=== PATIENT | female | born 1970 | race Caucasian/White ===

== ENCOUNTER → 2016-11-25 | Outpatient (CLI) | payer OTHER ==
[2016-11-25 09:06] VITALS: BP 132/78; PULSE 68; RESP 20; TEMP 98.1; BMI 37.9
[2016-11-25 10:40] LABS: Partial Thromboplastin Time 23.2 sec (22.0-30.0); Prothrombin Time 10.5 sec (9.0-12.0)
[2016-11-25 10:50] LABS: CH 29.1; HCT 43.6 % (34.0-46.0); HGB 13.9 gm/dL (11.4-16.0); MCH 28.2 pg (25.0-35.0); MCHC 31.8 g/dL (31.0-37.0); MCV 88.7 fL (80.0-100.0); Mean Platelet Volume 7.6; RBC 4.92 m/uL (3.80-5.40); RDW 12.7 % (11.5-15.5)
[2016-11-25 11:16] LABS: ALT 47 U/L (9-52); AST 22 U/L (14-36); Alkaline Phosphatase 70 U/L (38-126); Anion Gap 11 mmol/L; Blood Urea Nitrogen 17 mg/dL (7-17); Calcium 9.4 mg/dL (8.4-10.2); Carbon Dioxide 27 mmol/L (22-30); Chloride 103 mmol/L (98-107); Cholesterol 150 mg/dL (<200); Glucose 91 mg/dL (74-99); HDL Cholesterol 44 mg/dL (40-60); Iron 63 ug/dL (37-170); Non-African American GFR(MDRD) >60 (>60 ml/min/1.73 sqM); Phosphorous 3.9 mg/dL (2.5-4.5); Potassium 4.3 mmol/L (3.5-5.1); Sodium 141 mmol/L (137-145); Total Bilirubin 0.6 mg/dL (0.2-1.3); Total Protein 6.8 g/dL (6.3-8.2); Triglycerides 119 mg/dL (<150)
[2016-11-25 11:27] LABS: % Iron Saturation 20.1 % (20-50); Prealbumin 23 mg/dL (18-36); Total Iron Binding Capacity 313 ug/dL (265-497)
[2016-11-25 12:22] LABS: Vitamin B12 930 pg/mL (239-931)
[2016-11-25 12:32] LABS: Hemoglobin A1C 5.1 % (4.2-6.1)
--- NOTE | 2016-11-25 22:44 | PN ---
DATE OF SERVICE: 11/25/2016 CHIEF COMPLAINT: Followup, sleeve gastrectomy. HISTORY OF PRESENT ILLNESS: Lisha Haro is a 46-year-old female who is status post sleeve gastrectomy on 08/06/2016. At her height of 5 feet 6 inches, her ideal body weight is 154 pounds. Her highest weight was 295 pounds. Today she comes in weighing 234.5 pounds. She has lost 60.5 pounds. Percent excess weight loss is 43%, especially after 3 months. Body mass index has been reduced from 47.7 to 38. Total BMI point reduction is approximately 10. She reports no abdominal pain. No reports of nausea or vomiting. Her protein intake was actually above 100 grams. As a result, she has developed constipation. She exercises every day over an hour and a half. She is taking multivitamins. Separately she reports moderate hair loss. She did have her thyroid checked; her TSH level was moderately suppressed. She has had no adjustments of her thyroid medications, and hence she presents for further evaluation and management. PAST MEDICAL HISTORY: 1. Hypertension. 2. Morbid obesity. 3. Hypothyroidism. 4. Vitamin D deficiency. PAST SURGICAL HISTORY: 1. Adenoidectomy. 2. Tonsillectomy. 3. Uterine ablation. 4. History of problems with anesthesia. 5. Status post sleeve gastrectomy. MEDICATIONS: 1. Cozaar. 2. Alavert. 3. Synthroid. 4. Hydrochlorothiazide. 5. Vitamin D. 6. Prilosec. 7. Multivitamin. ALLERGIES: Denies. SOCIAL HISTORY: Lifelong nontobacco user. FAMILY HISTORY: She has family history of morbid obesity, including CVA, diabetes, hyperlipidemia, hypertension, osteoarthritis as well as bipolar manic depressive disorder. REVIEW OF SYSTEMS: CONSTITUTIONAL: [place] body weight of 154 pounds for her 5-foot 6-inch frame. Highest weight of 295 pounds. Present weight of approximately 235 pounds. Weight loss of almost 61 pounds. Percent excess weight loss 43% in 3 months. Body mass index reduced from 48 to approximately 38. Total BMI point reduction is approximately 10. GASTROINTESTINAL: No reports of gastroesophageal reflux disease. ENDOCRINE: History of hypothyroidism. Recent TSH demonstrates suppressed levels. HEENT: Denies troubles with vision or hearing. No reports of dysphagia. CARDIOVASCULAR: History of hypertension with at least 2 blood pressure medications. She reports some intermittent palpitations. RESPIRATORY: No reports of pneumonia. MUSCULOSKELETAL: History of osteoarthritis of the bilateral feet. NEURO: No reports of stroke or seizure disorders. PSYCH: No reports of active depression or suicidal ideation. HEMATOLOGIC: No reports of easy bruising or bleeding. PHYSICAL EXAM: VITAL SIGNS: 98.1, 68, 20, 132/78, 5 feet 6 inches, 235 pounds. Body mass index of 37.9. GENERAL: Well-developed female in no acute distress. ABDOMEN: No palpable incisional hernias. Soft, nontender. NECK: No palpable lymphadenopathy or nodules. HEENT: No scleral icterus. Extraocular movements grossly intact. Moist buccal mucosa. Neck is supple without lymphadenopathy. CHEST: Nonlabored respirations with equal bilateral excursions. CARDIOVASCULAR: Regular rate and rhythm. MUSCULOSKELETAL: No clubbing or cyanosis. NEURO: Cranial nerves 2-12 intact grossly intact. No focal or lateralizing signs. PSYCH: Appropriate affect. Alert and oriented to person, place and time. LABS: Bariatric metabolic panel was obtained demonstrating hemoglobin normal at 13.9. INR normal at 1.0. TSH was moderately suppressed at 0.052. Rest of her multivitamins are in excellent limits. ASSESSMENT: 1. Morbid obesity due to excess caloric intake. 2. Body mass index reduced from 47.7 down to 37.9. 3. Hypertensive heart disease. 4. Status post sleeve gastrectomy. 5. Hypothyroidism. 6. Vitamin D deficiency. 7. Osteoarthritis of the bilateral feet. 8. Panniculitis. 9. Dietary surveillance and counseling. 10. History of abnormal TSH level. 11. Iatrogenic-induced hyperthyroidism. 12. Hair loss. PLAN: 1. She is doing magnificent with her weight loss of already 61 pounds in 3 months. 2. Her main concern includes her hair loss, which is mostly consistent with her hyperthyroidism. Her laboratory results were reviewed over the last several months consistent with likely adverse reaction from her thyroid medication. 3. I recommend adjustment to Bariatric Advantage to Alive Ultrapotentcy multivitamin. 4. Recommended followup in one month both to address her hyperthyroidism as well as her hair loss. [facility]
[2016-11-30 15:26] LABS: Selenium 153 mcg/L (63-160)
== END | disposition home or self-care (01) ==
LOC: BARWHC3 08:44
PROVIDERS: ATTEND Surgery Plastic and Reconstructive Surgery
DX: Z48.815 Encounter for surgical aftercare following surgery on the digestive system (principal); Z71.3 Dietary counseling and surveillance; Z98.84 Bariatric surgery status; E05.80 Other thyrotoxicosis without thyrotoxic crisis or storm; Z68.37 Body mass index [BMI] 37.0-37.9, adult
CPT/HCPCS: 84255; 84134; 84425; 80061; 80053; 82607; 82728; 83036; 82525; 82746; 83540; 83550; 83735; 84100; 84443; 84590; 84630; 85027; 85610; 85730; 82306; 83970; 97803; G0463; 99211

== ENCOUNTER → 2017-01-06 | Outpatient (CLI) | payer OTHER ==
[2017-01-06 09:09] VITALS: BP 135/79; PULSE 60; RESP 16; TEMP 98.4; BMI 35.3
--- NOTE | 2017-02-06 17:30 | P.PN ---
Progress Note - Text DATE OF SERVICE: 01/06/2017 CHIEF COMPLAINT: Follow-up sleeve gastrectomy. HISTORY OF PRESENT ILLNESS: Lisha Haro is a 46-year-old female who has undergone a sleeve gastrectomy on 08/06/2016. She is approximately 6 months out. At her height of 5 feet 6 inches, her ideal body weight is 154 pounds. Her highest weight was 295 pounds. Today she comes in weighing 219 pounds. She has lost 76 pounds. Percent excess weight loss is 54%. Body mass index is now reduced from 47.7 down to 35.3. Total BMI point reduction is 12.3. Separately, she has developed a completely new exercise regimen where she exercises on a daily basis. She reports recent slow weight loss as to be expected as she is 6 months out. She reports maintaining at least 55 grams of protein intake. Incidentally, she is also off her omeprazole and denies any recurrent gastroesophageal reflux disease. She no longer takes medications for her blood pressure. She still takes medications for her thyroid. PAST MEDICAL HISTORY: 1. Hypertension. 2. Morbid obesity. 3. Hypothyroidism. 4. Vitamin D deficiency. PAST SURGICAL HISTORY: 1. Adenoidectomy. 2. Tonsillectomy. 3. Uterine ablation. 4. History of problems with anesthesia 5. Status post sleeve gastrectomy. MEDICATIONS: 1. Calcium carbonate. 2. Milk of magnesia. 3. Synthroid. 4. Vitamin B12. 5. Vitamin D. 6. Biotin. ALLERGIES: Denies. SOCIAL HISTORY: Lifelong nontobacco user. FAMILY HISTORY: She has family history of morbid obesity, including CVA, diabetes, hyperlipidemia, hypertension, osteoarthritis as well as bipolar manic depressive disorder. REVIEW OF ORGAN SYSTEMS: CONSTITUTIONAL: [place] body weight of 154 pounds. Her highest weight was 295 pounds. Today she comes in weighing 219 pounds. She has lost 76 pounds. Percent excess weight loss is 54%. Body mass index is now reduced from 47.7 down to 35.3. Total BMI point reduction is 12.3. GASTROINTESTINAL: Resolved gastroesophageal reflux disease. CARDIOVASCULAR: History of hypertension, now resolved. She no longer takes at least 2 medications. No reports of palpitations. ENDOCRINE: History of hypothyroidism. Recent TSH demonstrates suppressed levels. HEENT: Denies troubles with vision or hearing. No reports of dysphagia. RESPIRATORY: No reports of pneumonia. MUSCULOSKELETAL: History of osteoarthritis of the bilateral feet. NEURO: No reports of stroke or seizure disorders. PSYCH: No reports of active depression or suicidal ideation. HEMATOLOGIC: No reports of easy bruising or bleeding. PHYSICAL EXAM: VITAL SIGNS: 98.4, 60, 16, 135/79, 5 feet 6 inches, 219 pounds. Body mass index is 35.4. GENERAL: Well-developed female in no acute distress. ABDOMEN: No palpable incisional hernias. Soft, nontender. NECK: No palpable lymphadenopathy or nodules. HEENT: No scleral icterus. Extraocular movements grossly intact. Moist buccal mucosa. Neck is supple without lymphadenopathy. CHEST: Nonlabored respirations with equal bilateral excursions. CARDIOVASCULAR: Regular rate and rhythm. MUSCULOSKELETAL: No clubbing or cyanosis. NEURO: Cranial nerves 2-12 intact grossly intact. No focal or lateralizing signs. PSYCH: Appropriate affect. Alert and oriented to person, place and time. LABS: Bariatric metabolic panel was reviewed. Hemoglobin was normal at 12.9. TSH was suppressed at 0.052. Trace elements were within normal limits. ASSESSMENT: 1. Morbid obesity due to excess calories. 2. Body mass index reduced from 47.7 down to 35.4. 3. Hypertensive heart disease, resolved. 4. Status post sleeve gastrectomy. 5. Hypothyroidism. 6. Suppressed TSH level. 7. Vitamin D deficiency, now improved. 8. Gastroesophageal reflux disease, resolved. 9. Vitamin A deficiency resolved. 10. Constipation. PLAN: 1. As she reports constipation, she will continue milk of magnesia in the interim. 2. I have gone over with her the results of her suppressed TSH levels which ideally her thyroid medication should be adjusted; however, given her weight loss she wants to keep her current dose. 3. She is also concerned by the slowness of her weight loss, which is to be expected as she is now 6 months out and an expected plateau is present. 4. Overall, she is doing extremely well and I have recommended followup in 3 months. 5. As she no longer has reflux disease, she may stay off her omeprazole. 6. Recommend followup for April,.
== END | disposition home or self-care (01) ==
LOC: BARWHC3 08:49
PROVIDERS: ATTEND Surgery Plastic and Reconstructive Surgery
DX: Z48.815 Encounter for surgical aftercare following surgery on the digestive system (principal); Z71.3 Dietary counseling and surveillance; Z98.84 Bariatric surgery status; E66.01 Morbid (severe) obesity due to excess calories; Z68.35 Body mass index [BMI] 35.0-35.9, adult; E03.9 Hypothyroidism, unspecified; E55.9 Vitamin D deficiency, unspecified; K59.00 Constipation, unspecified; Z79.899 Other long term (current) drug therapy
CPT/HCPCS: 97803; G0463; 99211

== ENCOUNTER → 2017-02-03 | Outpatient (CLI) | payer OTHER ==
[2017-02-03 09:18] VITALS: BP 128/93; PULSE 66; RESP 20; TEMP 98.3; BMI 33.6
--- NOTE | 2017-02-03 11:02 | P.PN ---
Progress Note - Text To whom it may concern: Lisha Haro is under my surgical care and may donate blood products or plasma. Sincerely, Gaviota Ratliff MD, FACS, FICS
[2017-02-03 12:01] LABS: CH 29.2; CHCM 33.3; HCT 42.7 % (34.0-46.0); HDW 2.43; HGB 14.4 gm/dL (11.4-16.0); MCH 29.7 pg (25.0-35.0); MCHC 33.7 g/dL (31.0-37.0); MCV 88.1 fL (80.0-100.0); Mean Platelet Volume 7.9; RBC 4.85 m/uL (3.80-5.40); RDW 13.2 % (11.5-15.5); WBC 7.3 k/uL (3.8-10.6)
[2017-02-03 12:12] LABS: ALT 40 U/L (9-52); AST 22 U/L (14-36); Alkaline Phosphatase 66 U/L (38-126); Anion Gap 10 mmol/L; Blood Urea Nitrogen 18 mg/dL (7-17); Calcium 9.7 mg/dL (8.4-10.2); Carbon Dioxide 34 mmol/L (22-30); Chloride 99 mmol/L (98-107); Cholesterol 157 mg/dL (<200); Glucose 87 mg/dL (74-99); HDL Cholesterol 54 mg/dL (40-60); Iron 50 ug/dL (37-170); Magnesium 2.1 mg/dL (1.6-2.3); Non-African American GFR(MDRD) >60 (>60 ml/min/1.73 sqM); Phosphorous 4.8 mg/dL (2.5-4.5); Potassium 4.4 mmol/L (3.5-5.1); Sodium 143 mmol/L (137-145); Total Bilirubin 0.7 mg/dL (0.2-1.3); Total Protein 7.4 g/dL (6.3-8.2); Triglycerides 121 mg/dL (<150)
[2017-02-03 12:18] LABS: INR 1.1 (<1.1); Partial Thromboplastin Time 23.2 sec (22.0-30.0); Prothrombin Time 10.7 sec (9.0-12.0)
[2017-02-03 12:25] LABS: % Iron Saturation 17.7 % (20-50); Prealbumin 26 mg/dL (18-36); Total Iron Binding Capacity 282 ug/dL (265-497)
[2017-02-03 13:22] LABS: Vitamin B12 >1000 pg/mL (239-931)
[2017-02-03 13:24] LABS: Hemoglobin A1C 5.3 % (4.2-6.1)
[2017-02-08 18:36] LABS: Selenium 182 mcg/L (63-160)
--- NOTE | 2017-03-03 21:13 | P.PN ---
Progress Note - Text DATE OF SERVICE: 02/03/17. CHIEF COMPLAINT: Follow-up sleeve gastrectomy. HISTORY OF PRESENT ILLNESS: Lisha Haro is a 47-year-old female status post sleeve gastrectomy on 08/06/2016. She is on her 6 month anniversary. At her height of 5 feet 6 inches, her ideal body weight is 154 pounds. Her highest weight was 295 pounds. Today she comes in weighing 208 pounds. She has lost 87 pounds in 6 months. Percent excess weight loss is 68%. Body mass index is reduced from 47.7 down to 33.7. BMI point reduction is 14 points. She is only 54 pounds overweight. No reports of gastroesophageal reflux disease. She reports moderate panniculitis of the abdomen. PAST MEDICAL HISTORY: 1. Hypertension. 2. Morbid obesity. 3. Hypothyroidism. 4. Vitamin D deficiency. PAST SURGICAL HISTORY: 1. Adenoidectomy. 2. Tonsillectomy. 3. Uterine ablation. 4. History of problems with anesthesia 5. Status post sleeve gastrectomy. MEDICATIONS: 1. Milk of magnesia. 2. Synthroid. 3. Vitamin B12. 4. Vitamin D. 5. Biotin. 6. Vitamin D3. ALLERGIES: Denies. SOCIAL HISTORY: Lifelong nontobacco user. FAMILY HISTORY: She has family history of morbid obesity, including CVA, diabetes, hyperlipidemia, hypertension, osteoarthritis as well as bipolar manic depressive disorder. REVIEW OF SYSTEMS: CONSTITUTIONAL: [place] body weight is 154 pounds for her 5 foot 6 inch frame. Highest weight of 295 pounds. Present weight 208 pounds. Weight loss of 87 pounds. Percent excess weight loss 68%. Body mass index she is a 47.7 to 33.7. BMI point reduction of 14. MUSCULOSKELETAL: History of lower back pain improved. GASTROINTESTINAL: Resolved gastroesophageal reflux disease. CARDIOVASCULAR: History of hypertension, now resolved. She no longer takes at least 2 medications. No reports of palpitations. ENDOCRINE: History of hypothyroidism. Recent TSH demonstrates suppressed levels. HEENT: Denies troubles with vision or hearing. No reports of dysphagia. RESPIRATORY: No reports of pneumonia. NEURO: No reports of stroke or seizure disorders. PSYCH: No reports of active depression or suicidal ideation. HEMATOLOGIC: No reports of easy bruising or bleeding. PHYSICAL EXAM: VITAL SIGNS: 98.3, 66, 21, 120/93; 5 feet 6 inches, 208 pounds. Body mass index 33.7. ABDOMEN: Soft, nontender. No large palpable incisional hernias. Pannus extends over pubis x 6 nutrition. Weight of pannus between 5 to 10 pounds. Mild to moderate panniculitis. GENERAL: Well-developed female in no acute distress. NECK: No palpable lymphadenopathy or nodules. HEENT: No scleral icterus. Extraocular movements grossly intact. Moist buccal mucosa. Neck is supple without lymphadenopathy. CHEST: Nonlabored respirations with equal bilateral excursions. CARDIOVASCULAR: Regular rate and rhythm. MUSCULOSKELETAL: No clubbing or cyanosis. NEURO: Cranial nerves 2-12 intact grossly intact. No focal or lateralizing signs. PSYCH: Appropriate affect. Alert and oriented to person, place and time. LABS: Bariatric metabolic panel reviewed demonstrated carbon dioxide elevated at 34, BUN elevated at 18. Phosphorus elevated at 4.8. Percent iron saturation was 17.7%. Vitamin B12 elevated over 1000. TSH suppressed at less than 0.015. ASSESSMENT: 1. Morbid obesity due to excess calories. 2. Body mass index reduced from 44.7 down to 33.7. 3. Hypertensive heart disease, resolved. 4. Status post sleeve gastrectomy. 5. Hypothyroidism. 6. Suppressed TSH level. 7. Vitamin D deficiency, now improved. 8. Gastroesophageal reflux disease, resolved. 9. Vitamin A deficiency resolved. 10. Constipation. 11. Panniculitis. PLAN: 1. For her panniculitis, prescription for nystatin powder is written on her behalf. 2. She is close to 100 pounds weight loss, although she is 6 months postop. 3. Her TSH level is suppressed. She may need adjustment including decreased dose of thyroid medication. 4. Recommend follow-up in 3 months; otherwise for April 2017. 5. Overall, she is doing excellent weight loss. 6. Recommend complete bariatric metabolic panel as well.
== END | disposition home or self-care (01) ==
LOC: BARWHC3 08:45
PROVIDERS: ATTEND Surgery Plastic and Reconstructive Surgery
DX: Z48.815 Encounter for surgical aftercare following surgery on the digestive system (principal); E66.01 Morbid (severe) obesity due to excess calories; Z68.33 Body mass index [BMI] 33.0-33.9, adult; E03.9 Hypothyroidism, unspecified; R79.89 Other specified abnormal findings of blood chemistry; E55.9 Vitamin D deficiency, unspecified; K59.00 Constipation, unspecified; M79.3 Panniculitis, unspecified
CPT/HCPCS: 84255; 84134; 84425; 80061; 80053; 82607; 82728; 83036; 82525; 82746; 83540; 83550; 83735; 84100; 84443; 84590; 84630; 85027; 85610; 85730; 82306; 83970; G0463; 99211

== ENCOUNTER → 2017-05-05 | Outpatient (CLI) | payer OTHER ==
[2017-05-05 09:23] VITALS: BP 119/69; PULSE 65; RESP 16; TEMP 98.6; BMI 31.6
[2017-05-05 11:31] LABS: INR 1.1 (<1.1)
[2017-05-05 11:32] LABS: Partial Thromboplastin Time 23.6 sec (22.0-30.0); Prothrombin Time 10.9 sec (9.0-12.0)
[2017-05-05 11:37] LABS: CH 30.6; CHCM 33.1; HCT 48.4 % (34.0-46.0); HDW 2.27; HGB 15.4 gm/dL (11.4-16.0); MCH 29.4 pg (25.0-35.0); MCHC 31.7 g/dL (31.0-37.0); MCV 92.7 fL (80.0-100.0); Mean Platelet Volume 7.1; RBC 5.22 m/uL (3.80-5.40); RDW 13.2 % (11.5-15.5); WBC 8.2 k/uL (3.8-10.6)
[2017-05-05 11:40] LABS: ALT 36 U/L (9-52); AST 20 U/L (14-36); Alkaline Phosphatase 72 U/L (38-126); Anion Gap 12 mmol/L; Blood Urea Nitrogen 18 mg/dL (7-17); Calcium 9.8 mg/dL (8.4-10.2); Carbon Dioxide 31 mmol/L (22-30); Chloride 99 mmol/L (98-107); Cholesterol 169 mg/dL (<200); Glucose 96 mg/dL (74-99); HDL Cholesterol 59 mg/dL (40-60); Iron 53 ug/dL (37-170); Non-African American GFR(MDRD) >60 (>60 ml/min/1.73 sqM); Phosphorous 4.6 mg/dL (2.5-4.5); Potassium 4.8 mmol/L (3.5-5.1); Sodium 142 mmol/L (137-145); Total Bilirubin 0.6 mg/dL (0.2-1.3); Total Protein 7.6 g/dL (6.3-8.2); Triglycerides 123 mg/dL (<150)
[2017-05-05 11:51] LABS: % Iron Saturation 18.9 % (20-50); Prealbumin 24 mg/dL (18-36); Total Iron Binding Capacity 280 ug/dL (265-497)
[2017-05-05 12:56] LABS: Vitamin B12 >1000 pg/mL (239-931)
[2017-05-10 16:17] LABS: Selenium 194 mcg/L (63-160)
--- NOTE | 2017-05-18 17:05 | P.PN ---
Progress Note - Text DATE OF SERVICE: 05/05/17. CHIEF COMPLAINT: Follow-up sleeve gastrectomy. HISTORY OF PRESENT ILLNESS: Lisha Haro is a 47-year-old female status post sleeve gastrectomy on 08/06/2016. She is on her 9 month anniversary. At her height of 5 feet 6 inches, her ideal body weight is 154 pounds. Her highest weight was 295 pounds. Today she comes in weighing 196 pounds. He has lost another 12 pounds in 3 months. Total weight loss is 99 pounds. Percent excess weight loss is 70%. Body mass index is reduced from 47.7 down to 31.7. BMI point reduction is 16 points. She is 42 pounds overweight. She reports gastroesophageal reflux disease. She reports persistent moderate panniculitis of the abdomen. PAST MEDICAL HISTORY: 1. Hypertension. 2. Morbid obesity. 3. Hypothyroidism. 4. Vitamin D deficiency. PAST SURGICAL HISTORY: 1. Adenoidectomy. 2. Tonsillectomy. 3. Uterine ablation. 4. History of problems with anesthesia 5. Status post sleeve gastrectomy. MEDICATIONS: 1. Milk of magnesia. 2. Synthroid. 3. Vitamin B12. 4. Vitamin D. 5. Biotin. 6. Vitamin D3. ALLERGIES: Denies. SOCIAL HISTORY: Lifelong nontobacco user. FAMILY HISTORY: She has family history of morbid obesity, including CVA, diabetes, hyperlipidemia, hypertension, osteoarthritis as well as bipolar manic depressive disorder. REVIEW OF SYSTEMS: CONSTITUTIONAL: At her height of 5 feet 6 inches, her ideal body weight is 154 pounds. Her highest weight was 295 pounds. Today she comes in weighing 196 pounds. He has lost another 12 pounds in 3 months. Total weight loss is 99 pounds. Percent excess weight loss is 70%. Body mass index is reduced from 47.7 down to 31.7. BMI point reduction is 16 points. She is 42 pounds overweight. MUSCULOSKELETAL: History of lower back pain improved. Improvement of lower extremity joints. GASTROINTESTINAL: Reports new gastroesophageal reflux disease. No reports of dumping syndrome. CARDIOVASCULAR: History of hypertension, now resolved. She no longer takes at least 2 medications. No reports of palpitations. ENDOCRINE: History of hypothyroidism. Recent TSH demonstrates suppressed levels. HEENT: Denies troubles with vision or hearing. No reports of dysphagia. RESPIRATORY: No reports of pneumonia. NEURO: No reports of stroke or seizure disorders. PSYCH: No reports of active depression or suicidal ideation. HEMATOLOGIC: No reports of easy bruising or bleeding. PHYSICAL EXAM: VITAL SIGNS: 5 feet 6 inches, 196 pounds. Body mass index 31.6. Vital Signs Temp 98.6 F 05/05/17 09:19 Pulse 65 05/05/17 09:19 Resp 16 05/05/17 09:19 BP 119/69 05/05/17 09:19 Pulse Ox ABDOMEN: Soft, nontender. Pannus extends over pubis 7 cm with hyperemia.. Weight of pannus 10 pounds. Moderate panniculitis. GENERAL: Well-developed female in no acute distress. NECK: No palpable lymphadenopathy or nodules. HEENT: No scleral icterus. Extraocular movements grossly intact. Moist buccal mucosa. Neck is supple without lymphadenopathy. CHEST: Nonlabored respirations with equal bilateral excursions. CARDIOVASCULAR: Regular rate and rhythm. MUSCULOSKELETAL: No clubbing or cyanosis. NEURO: Cranial nerves 2-12 intact grossly intact. No focal or lateralizing signs. PSYCH: Appropriate affect. Alert and oriented to person, place and time. LABS: Laboratory Last Values WBC 8.2 k/uL (3.8-10.6) 05/05/17 10:44 RBC 5.22 m/uL (3.80-5.40) 05/05/17 10:44 Hgb 15.4 gm/dL (11.4-16.0) 05/05/17 10:44 Hct 48.4 % (34.0-46.0) H 05/05/17 10:44 MCV 92.7 fL (80.0-100.0) 05/05/17 10:44 MCH 29.4 pg (25.0-35.0) 05/05/17 10:44 MCHC 31.7 g/dL (31.0-37.0) 05/05/17 10:44 RDW 13.2 % (11.5-15.5) 05/05/17 10:44 Plt Count 242 k/uL (150-450) 05/05/17 10:44 PT 10.9 sec (9.0-12.0) 05/05/17 10:44 INR 1.1 (<1.1) 05/05/17 10:44 APTT 23.6 sec (22.0-30.0) 05/05/17 10:44 Sodium 142 mmol/L (137-145) 05/05/17 10:44 Potassium 4.8 mmol/L (3.5-5.1) 05/05/17 10:44 Chloride 99 mmol/L (98-107) 05/05/17 10:44 Carbon Dioxide 31 mmol/L (22-30) H 05/05/17 10:44 Anion Gap 12 mmol/L 05/05/17 10:44 BUN 18 mg/dL (7-17) H 05/05/17 10:44 Creatinine 0.80 mg/dL (0.52-1.04) 05/05/17 10:44 Est GFR (MDRD) Af Amer >60 (>60 ml/min/1.73 sqM) 05/05/17 10:44 Est GFR (MDRD) Non-Af >60 (>60 ml/min/1.73 sqM) 05/05/17 10:44 Glucose 96 mg/dL (74-99) 05/05/17 10:[address] Glu mg/dL 97 mg/dL 05/05/17 10:44 Hemoglobin A1c 5.0 % (4.2-6.1) 05/05/17 10:44 Calcium 9.8 mg/dL (8.4-10.2) 05/05/17 10:44 Phosphorus 4.6 mg/dL (2.5-4.5) H 05/05/17 10:44 Magnesium 2.0 mg/dL (1.6-2.3) 05/05/17 10:44 Iron 53 ug/dL (37-170) 05/05/17 10:44 TIBC 280 ug/dL (265-497) 05/05/17 10:44 % Saturation 18.9 % (20-50) L 05/05/17 10:44 Ferritin 73 ng/mL (6-137) 05/05/17 10:44 Total Bilirubin 0.6 mg/dL (0.2-1.3) 05/05/17 10:44 AST 20 U/L (14-36) 05/05/17 10:44 ALT 36 U/L (9-52) 05/05/17 10:44 Alkaline Phosphatase 72 U/L (38-126) 05/05/17 10:44 Total Protein 7.6 g/dL (6.3-8.2) 05/05/17 10:44 Albumin 4.6 g/dL (3.5-5.0) 05/05/17 10:44 Prealbumin 24 mg/dL (18-36) 05/05/17 10:44 Triglycerides 123 mg/dL (<150) 05/05/17 10:44 Cholesterol 169 mg/dL (<200) 05/05/17 10:44 LDL Cholesterol, Calc 85 mg/dL (0-99) 05/05/17 10:44 HDL Cholesterol 59 mg/dL (40-60) 05/05/17 10:44 Vitamin A 56 ug/dL (38-106) 05/05/17 10:44 Vitamin B1 72 ug/L (38-122) 05/05/17 10:44 Vitamin B12 >1000 pg/mL (239-931) H 05/05/17 10:44 Vitamin D 25-Hydroxy 97.1 ng/mL (30.0-100.0) 05/05/17 10:44 Folate >20.00 ng/mL (>2.75) 05/05/17 10:44 TSH 0.022 mIU/L (0.465-4.680) L 05/05/17 10:44 PTH Intact 47.7 pg/mL (14.0-72.0) 05/05/17 10:44 Copper 1209 ug/L (810-1990) 05/05/17 10:44 Selenium 194 mcg/L (63-160) H 05/05/17 10:44 Zinc 72 ug/dL (60-130) 05/05/17 10:44 ASSESSMENT: 1. Morbid obesity due to excess calories. 2. Body mass index reduced from 44.7 down to 31.6. 3. Hypertensive heart disease, resolved. 4. Status post sleeve gastrectomy. 5. Hypothyroidism. 6. Suppressed TSH level. 7. Vitamin D deficiency, now improved. 8. Gastroesophageal reflux disease, resolved. 9. Vitamin A deficiency resolved. 10. Constipation. 11. Panniculitis. 12. Dietary surveillance and counseling. 13. Elevated selenium. PLAN: 1. Recommend continuing Nystatin powder. She is less than 1 year out however will evaluate for panniculectomy after 1 year anniversary. 2. Recommend bariatric metabolic panel as she is 9 months out. 3. She has suppressed TSH level consistent with iatrogenic hyperthyroidism. Recommend decreased doses of thyroid medication. 4. Her goal is to lose over 100 pounds. She is 9 months out and more than likely will achieve her goal. 5. Fluid intake over 64 ounces advised. 6. She is taking moderate amount of protein over 100 g where she was asked to decrease to 60-70 g daily. 7. Follow-up at her one-year anniversary, July 2017. 8. Recommend decreased selenium intake which also interferes with thyroid metabolism.
== END | disposition home or self-care (01) ==
LOC: BARWHC3 08:49
PROVIDERS: ATTEND Surgery Plastic and Reconstructive Surgery
DX: E66.01 Morbid (severe) obesity due to excess calories (principal); E03.9 Hypothyroidism, unspecified; E55.9 Vitamin D deficiency, unspecified; K21.9 Gastro-esophageal reflux disease without esophagitis; K59.00 Constipation, unspecified; E89.1 Postprocedural hypoinsulinemia; D50.8 Other iron deficiency anemias; E44.0 Moderate protein-calorie malnutrition; K74.1 Hepatic sclerosis; N19 Unspecified kidney failure; K50.90 Crohn's disease, unspecified, without complications; Z98.84 Bariatric surgery status; Z79.899 Other long term (current) drug therapy; Z68.31 Body mass index [BMI] 31.0-31.9, adult
CPT/HCPCS: 84255; 84134; 84425; 80061; 80053; 82607; 82728; 83036; 82525; 82746; 83540; 83550; 83735; 84100; 84443; 84590; 84630; 85027; 85610; 85730; 82306; 83970; 97803; 36415; G0463; 99211

== ENCOUNTER → 2017-08-04 | Outpatient (CLI) | payer OTHER ==
[2017-08-04 09:25] VITALS: BP 141/82; PULSE 57; RESP 20; TEMP 98.2; BMI 30.2
[2017-08-04 11:29] LABS: CH 30.9; CHCM 33.8; HCT 43.5 % (34.0-46.0); HDW 2.28; HGB 14.7 gm/dL (11.4-16.0); MCH 31.1 pg (25.0-35.0); MCHC 33.9 g/dL (31.0-37.0); MCV 91.9 fL (80.0-100.0); Mean Platelet Volume 7.8; RBC 4.73 m/uL (3.80-5.40); WBC 7.3 k/uL (3.8-10.6)
[2017-08-04 11:34] LABS: INR 1.1 (<1.2); Partial Thromboplastin Time 23.2 sec (22.0-30.0); Prothrombin Time 10.7 sec (9.0-12.0)
[2017-08-04 14:13] LABS: ALT 41 U/L (9-52); AST 22 U/L (14-36); Alkaline Phosphatase 70 U/L (38-126); Anion Gap 10 mmol/L; Blood Urea Nitrogen 13 mg/dL (7-17); Calcium 9.7 mg/dL (8.4-10.2); Carbon Dioxide 30 mmol/L (22-30); Chloride 99 mmol/L (98-107); Cholesterol 186 mg/dL (<200); Glucose 83 mg/dL (74-99); HDL Cholesterol 65 mg/dL (40-60); Non-African American GFR(MDRD) >60 (>60 ml/min/1.73 sqM); Potassium 4.5 mmol/L (3.5-5.1); Sodium 139 mmol/L (137-145); Total Bilirubin 0.7 mg/dL (0.2-1.3); Total Protein 7.3 g/dL (6.3-8.2)
[2017-08-04 15:02] LABS: Vitamin B12 994 pg/mL (239-931)
[2017-08-04 17:14] LABS: Iron Saturation 17.56 (12.00-45.00); Iron(FE) 49 ug/dL (50-170); Total Iron Binding Capacity 279 ug/dL (228-460)
[2017-08-10 19:15] LABS: Selenium 181 mcg/L (63-160)
--- NOTE | 2017-08-14 20:07 | P.PN ---
Progress Note - Text DATE OF SERVICE: 08/04/17. CHIEF COMPLAINT: Follow-up sleeve gastrectomy. HISTORY OF PRESENT ILLNESS: Lisha Haro is a 47-year-old female status post sleeve gastrectomy on 08/06/2016. She is 1 year out. At her height of 5 feet 6 inches, her ideal body weight is 154 pounds. Her highest weight was 295 pounds. Today she comes in weighing 187 pounds. She lost another 9 pounds in 3 months. Total weight loss is 108 pounds. Percent excess weight loss is 77%. Body mass index is reduced from 47.7 down to 30.2. She is 30 pounds overweight. No reports of gastroesophageal reflux disease. She reports no epigastric abdominal pain. She is here for her anniversary. PAST MEDICAL HISTORY: 1. Hypertension. 2. Morbid obesity. 3. Hypothyroidism. 4. Vitamin D deficiency. PAST SURGICAL HISTORY: 1. Adenoidectomy. 2. Tonsillectomy. 3. Uterine ablation. 4. History of problems with anesthesia 5. Status post sleeve gastrectomy. MEDICATIONS: 1. Milk of magnesia. 2. Synthroid. 3. Vitamin B12. 4. Vitamin D. 5. Biotin. 6. Vitamin D3. ALLERGIES: Denies. SOCIAL HISTORY: Lifelong nontobacco user. FAMILY HISTORY: She has family history of morbid obesity, including CVA, diabetes, hyperlipidemia, hypertension, osteoarthritis as well as bipolar manic depressive disorder. REVIEW OF SYSTEMS: CONSTITUTIONAL: At her height of 5 feet 6 inches, her ideal body weight is 154 pounds. Her highest weight was 295 pounds. Today she comes in weighing 187 pounds. She lost another 9 pounds in 3 months. Total weight loss is 108 pounds. Percent excess weight loss is 77%. Body mass index is reduced from 47.7 down to 30.2. She is 30 pounds overweight. MUSCULOSKELETAL: History of lower back pain improved. Improvement of lower extremity joints. GASTROINTESTINAL: Reports new gastroesophageal reflux disease. No reports of dumping syndrome. CARDIOVASCULAR: History of hypertension, now resolved. She no longer takes at least 2 medications. No reports of palpitations. ENDOCRINE: History of hypothyroidism. Recent TSH demonstrates suppressed levels. HEENT: Denies troubles with vision or hearing. No reports of dysphagia. RESPIRATORY: No reports of pneumonia. NEURO: No reports of stroke or seizure disorders. PSYCH: No reports of active depression or suicidal ideation. HEMATOLOGIC: No reports of easy bruising or bleeding. PHYSICAL EXAM: VITAL SIGNS: 5 feet 6 inches, 187 pounds. Body mass index 30.2. Vital Signs Temp 98.2 F 08/04/17 09:18 Pulse 57 L 08/04/17 09:18 Resp 20 08/04/17 09:18 BP 141/82 08/04/17 09:18 Pulse Ox ABDOMEN: Soft, nontender. Pannus of at least 10 pounds with hyperemia with hang over 6 cm. GENERAL: Well-developed female in no acute distress. NECK: No palpable lymphadenopathy or nodules. HEENT: No scleral icterus. Extraocular movements grossly intact. Moist buccal mucosa. Neck is supple without lymphadenopathy. CHEST: Nonlabored respirations with equal bilateral excursions. CARDIOVASCULAR: Regular rate and rhythm. MUSCULOSKELETAL: No clubbing or cyanosis. NEURO: Cranial nerves 2-12 intact grossly intact. No focal or lateralizing signs. PSYCH: Appropriate affect. Alert and oriented to person, place and time. ASSESSMENT: 1. Morbid obesity due to excess calories. 2. Body mass index reduced from 44.7 down to 30.2. 3. Hypertensive heart disease, resolved. 4. Status post sleeve gastrectomy. 5. Hypothyroidism. 6. Suppressed TSH level. 7. Vitamin D deficiency, now improved. 8. Gastroesophageal reflux disease, resolved. 9. Vitamin A deficiency resolved. 10. Constipation. 11. Panniculitis. PLAN: 1. She is 1 year out. Her weight loss is over 100+ pounds. 2. Recommend bariatric labs. 3. She has panniculitis. May benefit panniculectomy once her goal weight loss is achieved. 4. Recommend adjustment of her TSH level which has been persistently suppressed. LABS: Laboratory Last Values WBC 7.3 k/uL (3.8-10.6) 08/04/17 10:43 RBC 4.73 m/uL (3.80-5.40) 08/04/17 10:43 Hgb 14.7 gm/dL (11.4-16.0) 08/04/17 10:43 Hct 43.5 % (34.0-46.0) 08/04/17 10:43 MCV 91.9 fL (80.0-100.0) 08/04/17 10:43 MCH 31.1 pg (25.0-35.0) 08/04/17 10:43 MCHC 33.9 g/dL (31.0-37.0) 08/04/17 10:43 RDW 14.0 % (11.5-15.5) 08/04/17 10:43 Plt Count 242 k/uL (150-450) 08/04/17 10:43 PT 10.7 sec (9.0-12.0) 08/04/17 10:43 INR 1.1 (<1.2) 08/04/17 10:43 APTT 23.2 sec (22.0-30.0) 08/04/17 10:43 Sodium 139 mmol/L (137-145) 08/04/17 10:43 Potassium 4.5 mmol/L (3.5-5.1) 08/04/17 10:43 Chloride 99 mmol/L (98-107) 08/04/17 10:43 Carbon Dioxide 30 mmol/L (22-30) 08/04/17 10:43 Anion Gap 10 mmol/L 08/04/17 10:43 BUN 13 mg/dL (7-17) 08/04/17 10:43 Creatinine 0.80 mg/dL (0.52-1.04) 08/04/17 10:43 Est GFR (MDRD) Af Amer >60 (>60 ml/min/1.73 sqM) 08/04/17 10:43 Est GFR (MDRD) Non-Af >60 (>60 ml/min/1.73 sqM) 08/04/17 10:43 Glucose 83 mg/dL (74-99) 08/04/17 10:[address] Glu mg/dL 97 mg/dL 08/04/17 10:43 Hemoglobin A1c 5.0 % (4.2-6.1) 08/04/17 10:43 Calcium 9.7 mg/dL (8.4-10.2) 08/04/17 10:43 Phosphorus 5.0 mg/dL (2.5-4.5) H 08/04/17 10:43 Magnesium 2.0 mg/dL (1.6-2.3) 08/04/17 10:43 Iron 49 ug/dL (50-170) L 08/04/17 10:43 TIBC 279 ug/dL (228-460) 08/04/17 10:43 Iron Saturation 17.56 (12.00-45.00) 08/04/17 10:43 Ferritin 72.8 ng/mL (10.0-291.0) 08/04/17 10:43 Total Bilirubin 0.7 mg/dL (0.2-1.3) 08/04/17 10:43 AST 22 U/L (14-36) 08/04/17 10:43 ALT 41 U/L (9-52) 08/04/17 10:43 Alkaline Phosphatase 70 U/L (38-126) 08/04/17 10:43 Total Protein 7.3 g/dL (6.3-8.2) 08/04/17 10:43 Albumin 4.4 g/dL (3.5-5.0) 08/04/17 10:43 Prealbumin 29.0 mg/dL (18.0-42.0) 08/04/17 10:43 Triglycerides 88 mg/dL (<150) 08/04/17 10:43 Cholesterol 186 mg/dL (<200) 08/04/17 10:43 LDL Cholesterol, Calc 103 mg/dL (0-99) H 08/04/17 10:43 HDL Cholesterol 65 mg/dL (40-60) H 08/04/17 10:43 Vitamin A 59 ug/dL (38-106) 08/04/17 10:43 Vitamin B1 74 ug/L (38-122) 08/04/17 10:43 Vitamin B12 994 pg/mL (239-931) H 08/04/17 10:43 Vitamin D 25-Hydroxy 81.8 ng/mL (30.0-100.0) 08/04/17 10:43 Folate >24.0 ng/mL 08/04/17 10:43 TSH <0.015 mIU/L (0.465-4.680) L 08/04/17 10:43 PTH Intact 38.7 pg/mL (14.0-72.0) 08/04/17 10:43 Copper 1343 ug/L (810-1990) 08/04/17 10:43 Selenium 181 mcg/L (63-160) H 08/04/17 10:43 Zinc 104 ug/dL (60-130) 08/04/17 10:43
== END | disposition home or self-care (01) ==
LOC: BARWHC3 08:51
PROVIDERS: ATTEND Surgery Plastic and Reconstructive Surgery
DX: Z09 Encounter for follow-up examination after completed treatment for conditions other than malignant neoplasm (principal); E66.01 Morbid (severe) obesity due to excess calories; Z68.30 Body mass index [BMI] 30.0-30.9, adult; E03.9 Hypothyroidism, unspecified; M79.3 Panniculitis, unspecified; I10 Essential (primary) hypertension; E55.9 Vitamin D deficiency, unspecified; E21.1 Secondary hyperparathyroidism, not elsewhere classified; E89.1 Postprocedural hypoinsulinemia; D50.9 Iron deficiency anemia, unspecified; K90.9 Intestinal malabsorption, unspecified; K76.9 Liver disease, unspecified; N19 Unspecified kidney failure; K50.90 Crohn's disease, unspecified, without complications; Z98.84 Bariatric surgery status; Z79.899 Other long term (current) drug therapy
CPT/HCPCS: 84255; 84134; 84425; 80061; 80053; 82607; 82728; 83036; 82525; 82746; 83540; 83550; 83735; 84100; 84443; 84590; 84630; 85027; 85610; 85730; 82306; 83970; 97802; G0463; 99211

== ENCOUNTER → 2017-11-03 | Outpatient (CLI) | payer OTHER ==
[2017-11-03 09:29] VITALS: BP 135/90; PULSE 60; RESP 20; TEMP 97.9; BMI 28.8
--- NOTE | 2017-12-14 06:05 | P.PN ---
Subjective Progress Note Date: 11/03/17 DATE OF SERVICE: 11/03/17. CHIEF COMPLAINT: Panniculitis. HISTORY OF PRESENT ILLNESS: Lisha Haro is a 47-year-old female status post sleeve gastrectomy on 08/06/2016. She is over 1 year out. At her height of 5 feet 6 inches, her ideal body weight is 154 pounds. Her highest weight was 295 pounds. Today she comes in weighing 178 pounds. She lost another 9 pounds in 3 months. Total weight loss is 117 pounds. Percent excess weight loss is 83 %. Body mass index is reduced from 47.7 down to 28.8. She is 24 pounds overweight. She comes in with complaints of her abdominal pannus. She ia still losing weight. She has maintained over 100 pound weight loss beyond a year. She reports multiple sores along the skin which affects her grooming, bathing, and dressing. She has been treated with prescribed Nystatin powder for over a year. As a result, she comes in for evaluation for panniculectomy. PAST MEDICAL HISTORY: 1. Hypertension. 2. Morbid obesity. 3. Hypothyroidism. 4. Vitamin D deficiency. 5. Panniculitis. PAST SURGICAL HISTORY: 1. Adenoidectomy. 2. Tonsillectomy. 3. Uterine ablation. 4. History of problems with anesthesia 5. Status post sleeve gastrectomy. MEDICATIONS: 1. Milk of magnesia. 2. Synthroid. 3. Vitamin B12. 4. Vitamin D. 5. Biotin. 6. Vitamin D3. ALLERGIES: Denies. SOCIAL HISTORY: Lifelong nontobacco user. FAMILY HISTORY: She has family history of morbid obesity, including CVA, diabetes, hyperlipidemia, hypertension, osteoarthritis as well as bipolar manic depressive disorder. REVIEW OF SYSTEMS: CONSTITUTIONAL: At her height of 5 feet 6 inches, her ideal body weight is 154 pounds. Her highest weight was 295 pounds. Today she comes in weighing 178 pounds. She lost another 9 pounds in 3 months. Total weight loss is 117 pounds. Percent excess weight loss is 83 %. Body mass index is reduced from 47.7 down to 28.8. She is 24 pounds overweight. MUSCULOSKELETAL: History of lower back pain improved. Improvement of lower extremity joints. GASTROINTESTINAL: No active gastroesophageal reflux disease. No reports of dumping syndrome. CARDIOVASCULAR: History of hypertension, now resolved. No reports of palpitations. ENDOCRINE: History of hypothyroidism. No diabetes. HEENT: Denies troubles with vision or hearing. No reports of dysphagia. RESPIRATORY: No reports of pneumonia. NEURO: No reports of stroke or seizure disorders. PSYCH: No reports of active depression or suicidal ideation. HEMATOLOGIC: No reports of easy bruising or bleeding. SKIN: History of chronic skin rashes of the pannus. No skin cancer. PHYSICAL EXAM: VITAL SIGNS: 5 feet 6 inches, 178 pounds. Body mass index 28.8 Vital Signs Temp 97.9 F 11/03/17 09:23 Pulse 60 11/03/17 09:23 Resp 20 11/03/17 09:23 BP 135/90 11/03/17 09:23 Pulse Ox ABDOMEN: Soft, nontender. No large palpable incisional hernias. Moderate hyperemia with pannus over pubis by 6 cm. Weight of pannus between 10 and 15 pounds. GENERAL: Well-developed female in no acute distress. NECK: No palpable lymphadenopathy or nodules. HEENT: No scleral icterus. Extraocular movements grossly intact. Moist buccal mucosa. Neck is supple without lymphadenopathy. CHEST: Nonlabored respirations with equal bilateral excursions. CARDIOVASCULAR: Regular rate and rhythm. MUSCULOSKELETAL: No clubbing or cyanosis. NEURO: Cranial nerves 2-12 intact grossly intact. No focal or lateralizing signs. PSYCH: Appropriate affect. Alert and oriented to person, place and time. SKIN: Well perfused. Good skin turgor. LABS: Laboratory Last Values WBC 7.3 k/uL (3.8-10.6) 08/04/17 10:43 RBC 4.73 m/uL (3.80-5.40) 08/04/17 10:43 Hgb 14.7 gm/dL (11.4-16.0) 08/04/17 10:43 Hct 43.5 % (34.0-46.0) 08/04/17 10:43 MCV 91.9 fL (80.0-100.0) 08/04/17 10:43 MCH 31.1 pg (25.0-35.0) 08/04/17 10:43 MCHC 33.9 g/dL (31.0-37.0) 08/04/17 10:43 RDW 14.0 % (11.5-15.5) 08/04/17 10:43 Plt Count 242 k/uL (150-450) 08/04/17 10:43 PT 10.7 sec (9.0-12.0) 08/04/17 10:43 INR 1.1 (<1.2) 08/04/17 10:43 APTT 23.2 sec (22.0-30.0) 08/04/17 10:43 Sodium 139 mmol/L (137-145) 08/04/17 10:43 Potassium 4.5 mmol/L (3.5-5.1) 08/04/17 10:43 Chloride 99 mmol/L (98-107) 08/04/17 10:43 Carbon Dioxide 30 mmol/L (22-30) 08/04/17 10:43 Anion Gap 10 mmol/L 08/04/17 10:43 BUN 13 mg/dL (7-17) 08/04/17 10:43 Creatinine 0.80 mg/dL (0.52-1.04) 08/04/17 10:43 Est GFR (MDRD) Af Amer >60 (>60 ml/min/1.73 sqM) 08/04/17 10:43 Est GFR (MDRD) Non-Af >60 (>60 ml/min/1.73 sqM) 08/04/17 10:43 Glucose 83 mg/dL (74-99) 08/04/17 10:[address] Glu mg/dL 97 mg/dL 08/04/17 10:43 Hemoglobin A1c 5.0 % (4.2-6.1) 08/04/17 10:43 Calcium 9.7 mg/dL (8.4-10.2) 08/04/17 10:43 Phosphorus 5.0 mg/dL (2.5-4.5) H 08/04/17 10:43 Magnesium 2.0 mg/dL (1.6-2.3) 08/04/17 10:43 Iron 49 ug/dL (50-170) L 08/04/17 10:43 TIBC 279 ug/dL (228-460) 08/04/17 10:43 Iron Saturation 17.56 (12.00-45.00) 08/04/17 10:43 Ferritin 72.8 ng/mL (10.0-291.0) 08/04/17 10:43 Total Bilirubin 0.7 mg/dL (0.2-1.3) 08/04/17 10:43 AST 22 U/L (14-36) 08/04/17 10:43 ALT 41 U/L (9-52) 08/04/17 10:43 Alkaline Phosphatase 70 U/L (38-126) 08/04/17 10:43 Total Protein 7.3 g/dL (6.3-8.2) 08/04/17 10:43 Albumin 4.4 g/dL (3.5-5.0) 08/04/17 10:43 Prealbumin 29.0 mg/dL (18.0-42.0) 08/04/17 10:43 Triglycerides 88 mg/dL (<150) 08/04/17 10:43 Cholesterol 186 mg/dL (<200) 08/04/17 10:43 LDL Cholesterol, Calc 103 mg/dL (0-99) H 08/04/17 10:43 HDL Cholesterol 65 mg/dL (40-60) H 08/04/17 10:43 Vitamin A 59 ug/dL (38-106) 08/04/17 10:43 Vitamin B1 74 ug/L (38-122) 08/04/17 10:43 Vitamin B12 994 pg/mL (239-931) H 08/04/17 10:43 Vitamin D 25-Hydroxy 81.8 ng/mL (30.0-100.0) 08/04/17 10:43 Folate >24.0 ng/mL 08/04/17 10:43 TSH <0.015 mIU/L (0.465-4.680) L 08/04/17 10:43 PTH Intact 38.7 pg/mL (14.0-72.0) 08/04/17 10:43 Copper 1343 ug/L (810-1990) 08/04/17 10:43 Selenium 181 mcg/L (63-160) H 08/04/17 10:43 Zinc 104 ug/dL (60-130) 08/04/17 10:43 Elevated phosphorus. Low iron. Elevated HDL. Elevated vitamin B12. Suppressed TSH. Elevated selenium. ASSESSMENT: 1. Morbid obesity due to excess calories. 2. Body mass index reduced from 44.7 down to 28.8. 3. Hypertensive heart disease, resolved. 4. Status post sleeve gastrectomy. 5. Hypothyroidism. 6. Suppressed TSH level. 7. Vitamin D deficiency, now improved. 8. Gastroesophageal reflux disease, resolved. 9. Vitamin A deficiency resolved. 10. Constipation. 11. Panniculitis. 12. Elevated phosphorus. 13. Iron deficiency. 14. Elevated selenium. PLAN: 1. She comes in with primary complaints of her pannus. She has moderate panniculitis despite treatment for over one year. Additional photographic imaging obtained today. 2. Benefits and risks of panniculectomy including bleeding, infection, abdominal wall seromas, chronic pain, cosmetic deformity, need for further surgery were reviewed. 3. Her labs were reviewed demonstrating suppressed TSH levels. Upon further discussion, she also has elevated selenium which affects her thyroid metabolism. Recommend removal of additional selenium sources from diet. High selenium rich foods last were reviewed. 4. Recommend correction of iron with iron supplement. 5. Description for nystatin powder. 6. I have adjusted her thyroid dose. 7. Recommend follow-up in 1-2 months for stabilization of weight loss. Objective - Vital Signs Vital signs: Vital Signs Temp 97.9 F 11/03/17 09:23 Pulse 60 11/03/17 09:23 Resp 20 11/03/17 09:23 BP 135/90 11/03/17 09:23 Pulse Ox Intake & Output 11/02/17 11/03/17 11/03/17 18:59 06:59 18:59 Weight 80.83 kg
== END | disposition home or self-care (01) ==
LOC: BARWHC3 08:48
PROVIDERS: ATTEND Surgery Plastic and Reconstructive Surgery
DX: M79.3 Panniculitis, unspecified (principal); E66.01 Morbid (severe) obesity due to excess calories; I10 Essential (primary) hypertension; E03.9 Hypothyroidism, unspecified; E55.9 Vitamin D deficiency, unspecified; K59.00 Constipation, unspecified; E61.1 Iron deficiency; Z68.28 Body mass index [BMI] 28.0-28.9, adult; Z79.899 Other long term (current) drug therapy; Z90.89 Acquired absence of other organs; Z98.84 Bariatric surgery status
CPT/HCPCS: 99211

== ENCOUNTER → 2017-12-24 | Outpatient (CLI) | payer OTHER ==
[2017-12-24 11:06] LABS: HCT 44.6 % (34.0-46.0); HGB 14.5 gm/dL (11.4-16.0); MCH 29.7 pg (25.0-35.0); MCHC 32.5 g/dL (31.0-37.0); MCV 91.5 fL (80.0-100.0); Mean Platelet Volume 6.6; Platelet Count 262 k/uL (150-450); RBC 4.88 m/uL (3.80-5.40); RDW 13.3 % (11.5-15.5); WBC 6.5 k/uL (3.8-10.6)
[2017-12-24 11:21] LABS: Partial Thromboplastin Time 22.1 sec (22.0-30.0); Prothrombin Time 10.1 sec (9.0-12.0)
[2017-12-24 11:23] LABS: ALT 38 U/L (9-52); AST 23 U/L (14-36); Albumin 4.4 g/dL (3.5-5.0); Alkaline Phosphatase 59 U/L (38-126); Anion Gap 11 mmol/L; Blood Urea Nitrogen 17 mg/dL (7-17); Calcium 9.6 mg/dL (8.4-10.2); Carbon Dioxide 30 mmol/L (22-30); Chloride 102 mmol/L (98-107); Cholesterol 196 mg/dL (<200); Glucose 101 mg/dL (74-99); HDL Cholesterol 83 mg/dL (40-60); LDL Cholesterol,Calculated 92 mg/dL (0-99); Magnesium 1.8 mg/dL (1.6-2.3); Phosphorus 4.1 mg/dL (2.5-4.5); Potassium 4.6 mmol/L (3.5-5.1); Sodium 143 mmol/L (137-145); Total Bilirubin 0.6 mg/dL (0.2-1.3); Total Protein 7.2 g/dL (6.3-8.2); Triglycerides 107 mg/dL (<150)
[2017-12-24 17:25] LABS: Iron Saturation 55.15 (12.00-45.00)
[2017-12-24 17:33] LABS: Vitamin D 25 Hydroxy 53.9 ng/mL (30.0-100.0)
[2017-12-24 17:42] LABS: Folate, Serum 14.4 ng/mL
[2017-12-24 18:39] LABS: Parathyroid Hormone Intact 60.3 pg/mL (14.0-72.0)
[2017-12-24 21:20] LABS: Hemoglobin A1C 5.2 % (4.0-6.0)
[2017-12-26 12:14] LABS: Zinc, Serum 86 ug/dL (60-130)
[2017-12-27 06:12] LABS: Vitamin A 74 ug/dL (38-106)
[2017-12-27 15:31] LABS: Selenium 171 mcg/L (63-160)
[2017-12-28 05:05] LABS: Vitamin B1 67 ug/L (38-122)
== END | disposition home or self-care (01) ==
LOC: LABWHC1 10:38
PROVIDERS: ATTEND Surgery Plastic and Reconstructive Surgery
DX: E66.01 Morbid (severe) obesity due to excess calories (principal); E21.1 Secondary hyperparathyroidism, not elsewhere classified; E89.1 Postprocedural hypoinsulinemia; D50.9 Iron deficiency anemia, unspecified; K90.9 Intestinal malabsorption, unspecified; E55.9 Vitamin D deficiency, unspecified; K74.1 Hepatic sclerosis; N19 Unspecified kidney failure; K50.90 Crohn's disease, unspecified, without complications
CPT/HCPCS: 36415; 80053; 80061; 82306; 82525; 82607; 82728; 82746; 83036; 83540; 83550; 83735; 83970; 84100; 84134; 84255; 84425; 84443; 84590; 84630; 85027; 85610; 85730

== ENCOUNTER → 2018-01-04 | Outpatient (CLI) | payer OTHER ==
[2018-01-04 14:44] VITALS: BP 142/95; PULSE 76; RESP 16; TEMP 98.5; BMI 29.3
--- NOTE | 2018-03-09 13:32 | P.PN ---
Subjective Progress Note Date: 01/04/18 DATE OF SERVICE: 01/04/2018 CHIEF COMPLAINT: Panniculitis. HISTORY OF PRESENT ILLNESS: Lisha Haro is a 47-year-old female status post sleeve gastrectomy on 08/06/2016. She is over 1.5 year out. At her height of 5 feet 6 inches, her ideal body weight is 154 pounds. Her highest weight was 295 pounds. Today she comes in weighing 182 pounds. She lost gained 4 pounds in 2 months. Total weight loss is 113 pounds. Percent excess weight loss is 80 %. Body mass index is reduced from 47.7 down to 29.4. She is 29 pounds overweight. She has lost over 100 pounds. As a result of the severity of her panniculitis, she is taking antibiotics. She still has persistent symptoms. She reports severe pain along her pannus. She also reports chronic pain. She has troubles with dressing including with grooming herself. Despite prescribed oral and topical treatments, she has minimal improvement of her symptoms. PAST MEDICAL HISTORY: 1. Hypertension. 2. Morbid obesity. 3. Hypothyroidism. 4. Vitamin D deficiency. 5. Panniculitis. PAST SURGICAL HISTORY: 1. Adenoidectomy. 2. Tonsillectomy. 3. Uterine ablation. 4. History of problems with anesthesia 5. Status post sleeve gastrectomy. MEDICATIONS: 1. Milk of magnesia. 2. Synthroid. 3. Vitamin B12. 4. Vitamin D. 5. Biotin. 6. Vitamin D3. ALLERGIES: Denies. SOCIAL HISTORY: Lifelong nontobacco user. FAMILY HISTORY: She has family history of morbid obesity, including CVA, diabetes, hyperlipidemia, hypertension, osteoarthritis as well as bipolar manic depressive disorder. REVIEW OF SYSTEMS: CONSTITUTIONAL: At her height of 5 feet 6 inches, her ideal body weight is 154 pounds. Her highest weight was 295 pounds. Today she comes in weighing 182 pounds. She lost gained 4 pounds in 2 months. Total weight loss is 113 pounds. Percent excess weight loss is 80 %. Body mass index is reduced from 47.7 down to 29.4. She is 29 pounds overweight. MUSCULOSKELETAL: History of lower back pain improved. Improvement of lower extremity joints. GASTROINTESTINAL: No active gastroesophageal reflux disease. No reports of dumping syndrome. CARDIOVASCULAR: History of hypertension, now resolved. No reports of palpitations. ENDOCRINE: History of hypothyroidism. No diabetes. HEENT: Denies troubles with vision or hearing. No reports of dysphagia. RESPIRATORY: No reports of pneumonia. NEURO: No reports of stroke or seizure disorders. PSYCH: No reports of active depression or suicidal ideation. HEMATOLOGIC: No reports of easy bruising or bleeding. SKIN: History of chronic skin rashes of the pannus. No skin cancer. PHYSICAL EXAM: VITAL SIGNS: 5 feet 6 inches, 182 pounds. Body mass index 29.4 Vital Signs Temp 98.5 F 01/04/18 14:42 Pulse 76 01/04/18 14:42 Resp 16 01/04/18 14:42 BP 142/95 01/04/18 14:42 Pulse Ox ABDOMEN: Soft, nontender. Moderate hyperemia with pannus. Weight of pannus over 10 pounds. GENERAL: Well-developed female in no acute distress. NECK: No palpable lymphadenopathy or nodules. HEENT: No scleral icterus. Extraocular movements grossly intact. Moist buccal mucosa. Neck is supple without lymphadenopathy. CHEST: Nonlabored respirations with equal bilateral excursions. CARDIOVASCULAR: Regular rate and rhythm. MUSCULOSKELETAL: No clubbing or cyanosis. NEURO: Cranial nerves 2-12 intact grossly intact. No focal or lateralizing signs. PSYCH: Appropriate affect. Alert and oriented to person, place and time. SKIN: Well perfused. Good skin turgor. Laboratory Last Values WBC 6.5 k/uL (3.8-10.6) 12/24/17 10:44 RBC 4.88 m/uL (3.80-5.40) 12/24/17 10:44 Hgb 14.5 gm/dL (11.4-16.0) 12/24/17 10:44 Hct 44.6 % (34.0-46.0) 12/24/17 10:44 MCV 91.5 fL (80.0-100.0) 12/24/17 10:44 MCH 29.7 pg (25.0-35.0) 12/24/17 10:44 MCHC 32.5 g/dL (31.0-37.0) 12/24/17 10:44 RDW 13.3 % (11.5-15.5) 12/24/17 10:44 Plt Count 262 k/uL (150-450) 12/24/17 10:44 PT 10.1 sec (9.0-12.0) 12/24/17 10:44 INR 1.0 (<1.2) 12/24/17 10:44 APTT 22.1 sec (22.0-30.0) 12/24/17 10:44 Sodium 143 mmol/L (137-145) 12/24/17 10:44 Potassium 4.6 mmol/L (3.5-5.1) 12/24/17 10:44 Chloride 102 mmol/L (98-107) 12/24/17 10:44 Carbon Dioxide 30 mmol/L (22-30) 12/24/17 10:44 Anion Gap 11 mmol/L 12/24/17 10:44 BUN 17 mg/dL (7-17) 12/24/17 10:44 Creatinine 0.80 mg/dL (0.52-1.04) 12/24/17 10:44 Est GFR (MDRD) Af Amer >60 (>60 ml/min/1.73 sqM) 12/24/17 10:44 Est GFR (MDRD) Non-Af >60 (>60 ml/min/1.73 sqM) 12/24/17 10:44 Glucose 101 mg/dL (74-99) H 12/24/17 10:[address] Glu mg/dL 103 12/24/17 10:44 Hemoglobin A1c 5.2 % (4.0-6.0) 12/24/17 10:44 Calcium 9.6 mg/dL (8.4-10.2) 12/24/17 10:44 Phosphorus 4.1 mg/dL (2.5-4.5) 12/24/17 10:44 Magnesium 1.8 mg/dL (1.6-2.3) 12/24/17 10:44 Iron 166 ug/dL (50-170) 12/24/17 10:44 TIBC 301 ug/dL (228-460) 12/24/17 10:44 Iron Saturation 55.15 (12.00-45.00) H 12/24/17 10:44 Ferritin 81.9 ng/mL (10.0-291.0) 02/10/18 10:44 Total Bilirubin 0.6 mg/dL (0.2-1.3) 12/24/17 10:44 AST 23 U/L (14-36) 12/24/17 10:44 ALT 38 U/L (9-52) 12/24/17 10:44 Alkaline Phosphatase 59 U/L (38-126) 12/24/17 10:44 Total Protein 7.2 g/dL (6.3-8.2) 12/24/17 10:44 Albumin 4.4 g/dL (3.5-5.0) 12/24/17 10:44 Prealbumin 36.0 mg/dL (18.0-42.0) 12/24/17 10:44 Triglycerides 107 mg/dL (<150) 12/24/17 10:44 Cholesterol 196 mg/dL (<200) 12/24/17 10:44 LDL Cholesterol, Calc 92 mg/dL (0-99) 12/24/17 10:44 HDL Cholesterol 83 mg/dL (40-60) H 12/24/17 10:44 Vitamin A 74 ug/dL (38-106) 12/24/17 10:44 Vitamin B1 67 ug/L (38-122) 12/24/17 10:44 Vitamin B12 1921.0 pg/mL (200.0-944.0) H 12/24/17 10:44 Vitamin D 25-Hydroxy 53.9 ng/mL (30.0-100.0) 12/24/17 10:44 Folate 14.4 ng/mL 12/24/17 10:44 TSH 1.910 mIU/L (0.465-4.680) 12/24/17 10:44 PTH Intact 60.3 pg/mL (14.0-72.0) 12/24/17 10:44 Copper 903 ug/L (810-1990) 12/24/17 10:44 Selenium 171 mcg/L (63-160) H 12/24/17 10:44 Zinc 86 ug/dL (60-130) 12/24/17 10:44 ASSESSMENT: 1. Morbid obesity due to excess calories. 2. Body mass index reduced from 47.7 down to 29.4. 3. Hypertensive heart disease, resolved. 4. Status post sleeve gastrectomy. 5. Hypothyroidism. 6. Suppressed TSH level. 7. Vitamin D deficiency, now improved. 8. Gastroesophageal reflux disease, resolved. 9. Vitamin A deficiency resolved. 10. Constipation. 11. Panniculitis. 12. Elevated phosphorus. 13. Iron deficiency, resolved. 14. Elevated selenium. PLAN: 1. Repeat bariatric metabolic panel for correction of iron deficiency anemia. 2. She continues her persistent symptoms with panniculitis. Recommend panniculectomy. 3. Benefits and risks of panniculectomy reviewed including bleeding, infection , and cosmetic deformity including chronic pain. 4. Correction of nutritional deficiencies advised. 5. Two-week high-protein diet preoperatively advised. 6. Recommend discontinuing selenium supplement. Objective - Vital Signs Vital signs: Vital Signs Temp 98.5 F 01/04/18 14:42 Pulse 76 01/04/18 14:42 Resp 16 01/04/18 14:42 BP 142/95 01/04/18 14:42 Pulse Ox Intake & Output 01/03/18 01/04/18 01/04/18 18:59 06:59 18:59 Weight 82.554 kg
== END | disposition home or self-care (01) ==
LOC: BARWHC3 13:46
PROVIDERS: ATTEND Surgery Plastic and Reconstructive Surgery
DX: E66.01 Morbid (severe) obesity due to excess calories (principal); E55.9 Vitamin D deficiency, unspecified; K59.00 Constipation, unspecified; M79.3 Panniculitis, unspecified; R78.89 Finding of other specified substances, not normally found in blood; Z68.29 Body mass index [BMI] 29.0-29.9, adult; Z98.84 Bariatric surgery status; E03.9 Hypothyroidism, unspecified; Z79.899 Other long term (current) drug therapy
CPT/HCPCS: 99211

== ENCOUNTER → 2018-08-16 | Outpatient (CLI) | payer OTHER ==
[2018-08-16 16:38] VITALS: BP 132/91; PULSE 59; RESP 16; TEMP 98.1; BMI 30.2
--- NOTE | 2018-08-16 17:45 | P.PN ---
Subjective Progress Note Date: 08/16/18 HPI: She comes in with over 100 pounds weight loss. She has severe panniculitis. She still reports back pain and difficulty with management ABDOMEN: Moderate to severe panniculitis PLAN: 1. Recommend bariatric metabolic panel 2. High protein diet to maximize recovery 3. She has accomplished her 2 year visit and has done well. Objective - Vital Signs Vital signs: Vital Signs Temp 98.1 F 08/16/18 16:35 Pulse 59 L 08/16/18 16:35 Resp 16 08/16/18 16:35 BP 132/91 08/16/18 16:35 Pulse Ox Intake & Output 08/15/18 08/16/18 08/16/18 18:59 06:59 18:59 Weight 84.822 kg
== END | disposition home or self-care (01) ==
LOC: BARWHC3 15:27
PROVIDERS: ATTEND Surgery Plastic and Reconstructive Surgery
DX: M79.3 Panniculitis, unspecified (principal)
CPT/HCPCS: 99211

== ENCOUNTER → 2018-08-21 | Outpatient (CLI) | payer OTHER ==
[2018-09-19 13:18] VITALS: BMI 29.2
== END ==
LOC: BARWHC3 10:00
PROVIDERS: ATTEND Surgery Plastic and Reconstructive Surgery
DX: Z53.9 Procedure and treatment not carried out, unspecified reason (principal)

== ENCOUNTER → 2018-08-23 | Outpatient (CLI) | payer OTHER ==
[2018-08-23 09:37] LABS: HCT 47.3 % (34.0-46.0); HGB 15.8 gm/dL (11.4-16.0); MCH 29.7 pg (25.0-35.0); MCHC 33.4 g/dL (31.0-37.0); MCV 88.9 fL (80.0-100.0); Mean Platelet Volume 6.7; Platelet Count 238 k/uL (150-450); RBC 5.32 m/uL (3.80-5.40); RDW 12.7 % (11.5-15.5); WBC 7.3 k/uL (3.8-10.6)
[2018-08-23 09:46] LABS: INR 1.1 (<1.2); Partial Thromboplastin Time 22.7 sec (22.0-30.0); Prothrombin Time 10.4 sec (9.0-12.0)
[2018-08-23 09:55] LABS: ALT 32 U/L (9-52); AST 25 U/L (14-36); Albumin 4.5 g/dL (3.5-5.0); Alkaline Phosphatase 43 U/L (38-126); Anion Gap 11 mmol/L; Blood Urea Nitrogen 14 mg/dL (7-17); Calcium 9.3 mg/dL (8.4-10.2); Carbon Dioxide 30 mmol/L (22-30); Chloride 100 mmol/L (98-107); Cholesterol 227 mg/dL (<200); Glucose 89 mg/dL (74-99); HDL Cholesterol 81 mg/dL (40-60); LDL Cholesterol,Calculated 123 mg/dL (0-99); Magnesium 1.6 mg/dL (1.6-2.3); Phosphorus 3.6 mg/dL (2.5-4.5); Potassium 3.8 mmol/L (3.5-5.1); Sodium 141 mmol/L (137-145); Total Bilirubin 0.9 mg/dL (0.2-1.3); Total Protein 7.7 g/dL (6.3-8.2); Triglycerides 116 mg/dL (<150)
[2018-08-23 17:51] LABS: Hemoglobin A1C 4.9 % (4.0-6.0)
[2018-08-23 18:07] LABS: Iron Saturation 56.75 (12.00-45.00)
[2018-08-23 18:16] LABS: Vitamin D 25 Hydroxy 57.1 ng/mL (30.0-100.0)
[2018-08-23 19:07] LABS: Parathyroid Hormone Intact 71.5 pg/mL (14.0-72.0)
[2018-08-24 14:27] LABS: Zinc, Serum 104 ug/dL (60-130)
[2018-08-25 08:02] LABS: Vitamin A 61 ug/dL (38-106)
[2018-08-25 13:42] LABS: Vitamin B1 66 ug/L (38-122)
== END ==
LOC: LABWHC1 07:44
PROVIDERS: ATTEND Surgery Plastic and Reconstructive Surgery
DX: Z48.815 Encounter for surgical aftercare following surgery on the digestive system (principal); E66.01 Morbid (severe) obesity due to excess calories; E21.1 Secondary hyperparathyroidism, not elsewhere classified; E89.1 Postprocedural hypoinsulinemia; D50.9 Iron deficiency anemia, unspecified; E44.0 Moderate protein-calorie malnutrition; E55.9 Vitamin D deficiency, unspecified; K74.1 Hepatic sclerosis; N19 Unspecified kidney failure; K50.90 Crohn's disease, unspecified, without complications; Z98.84 Bariatric surgery status
CPT/HCPCS: 36415; 80053; 80061; 82306; 82525; 82607; 82728; 82746; 83036; 83540; 83550; 83735; 83970; 84100; 84134; 84255; 84425; 84443; 84590; 84630; 85027; 85610; 85730

== ENCOUNTER → 2018-11-01 | Outpatient (CLI) | payer OTHER ==
[2018-11-01 14:19] LABS: Basophils # (A) 0.1 k/uL (0-0.2); Basophils % (A) 1 %; Eosinophils # (A) 0.2 k/uL (0-0.7); Eosinophils % (A) 2 %; HCT 45.1 % (34.0-46.0); Lymphocytes # (A) 2.3 k/uL (1.0-4.8); Lymphocytes % (A) 29 %; MCHC 33.3 g/dL (31.0-37.0); MCV 90.2 fL (80.0-100.0); Mean Platelet Volume 6.7; Monocytes # (A) 0.5 k/uL (0-1.0); Monocytes % (A) 7 %; Neutrophils # (A) 4.9 k/uL (1.3-7.7); Neutrophils % (A) 60 %; Platelet Count 254 k/uL (150-450); RBC 5.01 m/uL (3.80-5.40); RDW 13.2 % (11.5-15.5); WBC 8.1 k/uL (3.8-10.6)
[2018-11-01 14:28] LABS: ALT 25 U/L (9-52); AST 25 U/L (14-36); Albumin 4.5 g/dL (3.5-5.0); Alkaline Phosphatase 46 U/L (38-126); Anion Gap 10 mmol/L; Blood Urea Nitrogen 14 mg/dL (7-17); Calcium 9.3 mg/dL (8.4-10.2); Carbon Dioxide 32 mmol/L (22-30); Chloride 96 mmol/L (98-107); Glucose 90 mg/dL (74-99); Potassium 3.8 mmol/L (3.5-5.1); Sodium 138 mmol/L (137-145); Total Bilirubin 0.8 mg/dL (0.2-1.3); Total Protein 7.7 g/dL (6.3-8.2)
== END ==
LOC: LABPAT 13:57
PROVIDERS: ATTEND Surgery Plastic and Reconstructive Surgery
DX: Z01.818 Encounter for other preprocedural examination (principal); Z01.812 Encounter for preprocedural laboratory examination
CPT/HCPCS: 36415; 80053; 85025; 93005

== ENCOUNTER → 2018-11-01 | Outpatient (CLI) | payer OTHER ==
--- NOTE | 2018-11-01 13:50 | P.PN ---
Subjective Progress Note Date: 11/01/18 HPI: Has panniculitis. Panniculectomy risks described. Tummy exercises. Two week protein diet advised. All questions.
[2018-11-01 13:54] VITALS: BP 125/82; PULSE 72; TEMP 97.8; BMI 29.5
== END ==
LOC: BARWHC3 12:37
PROVIDERS: ATTEND Surgery Plastic and Reconstructive Surgery
DX: M79.3 Panniculitis, unspecified (principal)
CPT/HCPCS: 99211

== ENCOUNTER 2018-11-20 05:45 | Day surgery (SDC) | payer OTHER ==
[2018-11-09 09:05] VITALS: BMI 29.2
--- NOTE | 2018-11-20 05:18 | P.GSHP ---
History of Present Illness H&P Date: 11/20/18 DATE OF SERVICE: 11/20/2018 CHIEF COMPLAINT: Panniculitis. HISTORY OF PRESENT ILLNESS: Lisha Haro is a 48-year-old female status post sleeve gastrectomy on 08/06/2016. She is over 2 years out. At her height of 5 feet 6 inches, her ideal body weight is 154 pounds. Her highest weight was 295 pounds. Today she comes in weighing 181 pounds. Total weight loss is 114 pounds. Percent excess weight loss is 81 %. Body mass index is reduced from 47.7 down to 29.2. She comes in with over 100 pounds weight loss. She still has severe panniculitis despite prescription treatment with topical antifungals and steroid creams. She reports worsening back pain and difficulty with management of exercising and grooming from her pannus. She presents for a panniculectomy PAST MEDICAL HISTORY: 1. Hypertension. 2. Morbid obesity, BMI 47.7, initial 3. Hypothyroidism. 4. Vitamin D deficiency. 5. Panniculitis. PAST SURGICAL HISTORY: 1. Adenoidectomy. 2. Tonsillectomy. 3. Uterine ablation. 4. History of problems with anesthesia 5. Status post sleeve gastrectomy. MEDICATIONS: 1. Milk of magnesia. 2. Synthroid. 3. Vitamin B12. 4. Vitamin D. 5. Biotin. 6. Vitamin D3. ALLERGIES: Denies. SOCIAL HISTORY: Lifelong nontobacco user. FAMILY HISTORY: She has family history of morbid obesity, including CVA, diabetes, hyperlipidemia, hypertension, osteoarthritis as well as bipolar manic depressive disorder. REVIEW OF SYSTEMS: CONSTITUTIONAL: At her height of 5 feet 6 inches, her ideal body weight is 154 pounds. Her highest weight was 295 pounds. Today she comes in weighing 181 pounds from 182 pounds, 8 months ago. She lost 1 pound in 8 months. Total weight loss is 114 pounds. Percent excess weight loss is 81 %. Body mass index is reduced from 47.7 down to 29.2. MUSCULOSKELETAL: History of lower back worsened with pannus. Improvement of lower extremity joints. GASTROINTESTINAL: No active gastroesophageal reflux disease. No reports of dumping syndrome. CARDIOVASCULAR: History of hypertension, now resolved. No reports of palpitations. ENDOCRINE: History of hypothyroidism. No diabetes. HEENT: Denies troubles with vision or hearing. No reports of dysphagia. RESPIRATORY: No reports of pneumonia. NEURO: No reports of stroke or seizure disorders. PSYCH: No reports of active depression or suicidal ideation. HEMATOLOGIC: No reports of easy bruising or bleeding. SKIN: History of chronic skin rashes of the pannus. No skin cancer. PHYSICAL EXAM: VITAL SIGNS: 5 feet 6 inches, 181 pounds. Body mass index 29.2 ABDOMEN: Soft, nontender. Panniculitis of pannus hangs over pubis 5 cm. Weight of pannus over 10 pounds. Moderate to severe panniculitis GENERAL: Well-developed female in no acute distress. NECK: No palpable lymphadenopathy or nodules. HEENT: No scleral icterus. Extraocular movements grossly intact. Moist buccal mucosa. Neck is supple without lymphadenopathy. CHEST: Nonlabored respirations with equal bilateral excursions. CARDIOVASCULAR: Regular rate and rhythm. MUSCULOSKELETAL: No clubbing or cyanosis. NEURO: Cranial nerves 2-12 intact grossly intact. No focal or lateralizing signs. PSYCH: Appropriate affect. Alert and oriented to person, place and time. SKIN: Well perfused. Good skin turgor. ASSESSMENT: 1. Panniculitis. 2. Body mass index reduced from 47.7 down to 29.2 3. Hypertensive heart disease, resolved. 4. Status post sleeve gastrectomy. 5. Hypothyroidism. PLAN: 1. Recommend panniculectomy for medical refractory to medical treatment panniculitis. 2. DVT prophylaxis 3. Antibiotic prophylaxis. 4. Risks of flap failure, seromas, need for JAYMIE drains, infection and cosmetic deformity described. Past Medical History Past Medical History: Asthma, Thyroid Disorder Additional Past Medical History / Comment(s): Asthma as a child, History of Any Multi-Drug Resistant Organisms: None Reported Past Surgical History: Adenoidectomy, Bariatric Surgery, Tonsillectomy, Uterine Ablation Additional Past Surgical History / Comment(s): EGD, sleeve gastrectomy 2016 Past Anesthesia/Blood Transfusion Reactions: Previous Problems w/ Anesthesia Additional Past Anesthesia/Blood Transfusion Reaction / Comment(s): During uterine ablation was acutely aware of sounds during procedure. Post Epidural for childbirth was "paralyzed" after delivery but feeling did come back after . Smoking Status: Never smoker - Past Family History Mother Family Medical History: No Reported History Father Family Medical History: COPD, Coronary Artery Disease (CAD), Thyroid Disorder Additional Family Medical History / Comment(s): Bipolar/manic depressive Medications and Allergies Home Medications Medication Instructions Recorded Confirmed Type Cholecalciferol [Vitamin D3] 400 unit PO DAILY 11/25/16 11/09/18 History Levothyroxine Sodium [Synthroid] 125 mcg PO DAILY #90 tab 01/04/18 11/09/18 Rx Multivitamins, Thera [Multivitamin 1 tab PO DAILY 11/09/18 11/09/18 History (formulary)] Allergies Allergy/AdvReac Type Severity Reaction Status Date / Time No Known Allergies Allergy Verified 11/09/18 08:57
[~2018-11-20 05:45] MED LIST: ACETAMINOPHEN IV (For NPO) 1,000 MG in EMPTY BAG 1 BAG IVPB STA; DEXAMETHASONE SOD PHOSPHATE 10 MG/ML 1 ML VIAL IV ONE; HEPARIN SODIUM,PORCINE 5,000 UNIT/ML 1 ML VIAL SQ ONE; LIDOCAINE 1% 20 ML VIAL (10MG/ML) FOR IV START INTRADERMA PRN; MIDAZOLAM (PF) 2 MG/2 ML VIAL IV PRN; ceFAZolin IN SWFI 2 GM/20 ML SYRINGE IVP ONE; fentaNYL (PF) 50 MCG/ML 2 ML AMP IV PRN
[2018-11-20] MEDS: LACTATED RINGERS 1,000 ML IV SCH (06:31)
[2018-11-20] MEDS ORDERED: PROPOFOL 10 MG/ML 20 ML VIAL IV ONE (07:00)
[2018-11-20] MEDS ORDERED: HYDROmorphone (PF) 1 MG/ML ONE (07:00)
[2018-11-20] MEDS ORDERED: fentaNYL (PF) 50 MCG/ML 2 ML AMP ONE (07:00)
[2018-11-20] MEDS ORDERED: SUCCINYLCHOLINE CHLORIDE 100 MG/5 ML SYR IV ONE (07:00)
[2018-11-20] MEDS ORDERED: LIDOCAINE 1% INJ 10MG/ML (20 ML MDV) ONE (07:00)
[2018-11-20] MEDS ORDERED: MIDAZOLAM 2 MG/2 ML VIAL ONE (07:00)
[2018-11-20] MEDS ORDERED: LACTATED RINGERS 1,000 ML IV ONE (09:27)
[2018-11-20] MEDS ORDERED: NALOXONE 0.4 MG/ML 1 ML VIAL IV PRN (09:47)
[2018-11-20] MEDS ORDERED: ONDANSETRON 4 MG/2 ML VIAL IVP PRN (09:47)
[2018-11-20] MEDS ORDERED: HYDROmorphone 1 MG/ML 1 ML SYRINGE IVP PRN (09:47)
--- NOTE | 2018-11-20 09:51 | P.OP ---
Date of Procedure: 11/20/18 Description of Procedure: SURGEON: CAIT ALLEN MD PREOPERATIVE DIAGNOSES: 1. Panniculitis. 2. Body mass index reduced from 47.7 down to 29.2 3. Hypertensive heart disease, resolved. 4. Status post sleeve gastrectomy. 5. Hypothyroidism. 6. Central adiposity POSTOPERATIVE DIAGNOSES: 1. Panniculitis. 2. Body mass index reduced from 47.7 down to 29.2 3. Hypertensive heart disease, resolved. 4. Status post sleeve gastrectomy. 5. Hypothyroidism. 6. Central adiposity OPERATION: 1. Panniculectomy, 5.88 pounds. ANESTHESIA: General ESTIMATED BLOOD LOSS: 300 mL SPECIMENS REMOVED: Pannus 5.88 pounds. COMPLICATIONS: None. CONDITION: Stable. DRAINS: Two #19 Barrett drains below abdominal flap extending through the pubis. OPERATIVE FINDINGS: 1. Pannus weighing 5.88 pounds., excised. INDICATIONS: Lisha Haro is a 48-year-old female status post sleeve gastrectomy on 08/06/2016. She is over 2 years out. At her height of 5 feet 6 inches, her ideal body weight is 154 pounds. Her highest weight was 295 pounds. Today she comes in weighing 181 pounds. Total weight loss is 114 pounds. Percent excess weight loss is 81 %. Body mass index is reduced from 47.7 down to 29.2. She comes in with over 100 pounds weight loss. She still has severe panniculitis despite prescription treatment with topical antifungals and steroid creams. She reports worsening back pain and difficulty with management of exercising and grooming from her pannus. She presents for a panniculectomy. Benefits and risks of the procedure including bleeding, infection, risk of flap failure, abdominal wall seromas, chronic pain were described at length. Informed consent was obtained. DESCRIPTION: In the preanesthesia care unit the patient was marked with an indelible marker. She had also been given heparin subcutaneously. The patient was brought into the operating room and laid in supine position. After general induction, a Evans catheter was placed. The abdomen was then prepped and draped in standard sterile fashion using ChloraPrep. The skin was prepped as far laterally to the back, inferiorly to the upper thighs and superiorly to above the bilateral breasts. A timeout protocol was confirmed with the surgical team regarding patient's name , procedure to be performed, including preoperative medications. She had received Ancef 2 grams IV antibiotics. Once the time-out protocol was confirmed with the surgical team, the patient was re-marked with indelible marker whereby the midline of the xiphoid to the mons pubis was marked. The anterior/superior iliac spine along the bilateral hips was also marked. Approximately 8 cm above the pubis commissure a transverse incision was made for the inferior portion of the flap. Using a #10 blade, the incision was taken from the midline laterally to above the anterior/ superior iliac spine, initially on the left side of the patient and then on the right side of the patient. Electro-Bovie cautery was used to control for hemostasis. The dissection was taken down to the level of the fascia. Landmarks used were the xiphoid process as well as the bilateral costal margins for the superior margin. Care was taken to avoid any creation of dog ears during the dissection. Hemostasis was once again checked with electro-Bovie cautery and all defects were addressed. Attention was now brought to closure of the flap. Using stainless steel skin elisabeth, the midline was once again marked of the upper flap as well as the pubic commissure. The patient was placed in a flexed position of approximately 20 degrees at the hips. The pannus was extended inferiorly to the feet. The upper flap was created once the excess skin was excised. Again care was taken to avoid any dog ears along the lateral aspect of the incisions. Once excised, the pannus was weighed at 4.04 pounds. The upper and lower flaps were reapproximated at the midline and then laterally to the skin with skin elisabeth. Once reapproximated, the skin was closed in layers using 0 Vicryl for the superficial fascial system followed by running 3- 0 Monocryl for the deep dermis in a running subcuticular fashion. Prior to skin closure, two round #19 Barrett drains were placed underneath the flap and brought out just inferior to the incision along the pubis. Drain stitch using 2-0 nylon was placed. Once the incision was closed, bulb suction was attached. Hemostasis was checked. At the end of the procedure, the needle, sponge and instrument count was verified correct. Exofin tape was placed along the length of the incision. Optifoam dressings were applied over the incision and used as a drain sponge. The patient was then transferred to a hospital bed in a beach chair position. An abdominal binder was placed and marked. The patient was taken to the postanesthesia care unit in stable condition, awake and extubated.
[2018-11-20] MEDS: HYDROmorphone 1 MG/ML 1 ML SYRINGE IVP ONE ×2 (10:13→10:18)
[2018-11-20] MEDS ORDERED: ONDANSETRON 4 MG/2 ML VIAL IVP ONE (10:18)
[2018-11-20] MEDS ORDERED: ACETAMINOPHEN IV (For NPO) 1,000 MG in EMPTY BAG 1 BAG IVPB ONE (12:00)
[2018-11-20] MEDS: ceFAZolin IN SWFI 2 GM/20 ML SYRINGE IVP SCH ×2 (15:13→23:45)
[2018-11-20] MEDS: HYDROcodone/APAP 5-325MG 1 EACH TAB PO PRN ×2 (15:13→20:52)
[2018-11-20] MEDS: 0.9% NACL WITH KCL 20 MEQ/L 1,000 ML IV SCH ×2 (15:30→20:53)
[2018-11-21] MEDS: 0.9% NACL WITH KCL 20 MEQ/L 1,000 ML IV SCH ×2 (01:27→02:58)
[2018-11-21] MEDS: LACTATED RINGERS 1,000 ML IV SCH (01:27)
[2018-11-21 02:00] VITALS: BP 98/63; PULSE 63; RESP 15; TEMP 99.2
[2018-11-21] MEDS: HYDROcodone/APAP 5-325MG 1 EACH TAB PO PRN ×3 (02:58→12:29)
[2018-11-21] MEDS ORDERED: 0.9% NACL WITH KCL 20 MEQ/L 1,000 ML IV SCH (08:00)
[2018-11-21] MEDS ORDERED: ENOXAPARIN 40 MG/0.4 ML SYRINGE SQ SCH (09:00)
--- NOTE | 2018-11-21 09:59 | P.PN ---
Progress Note - Text Progress Note Date: 11/21/18 Her pain is controlled. Evans is still present. Discharge instructions reviewed. Keep abdominal binder without opening or adjustments at this time. Follow up at the bariatric center in 48 hrs. JAYMIE teaching needed. Will add omeprazole and ibuprofen for pain control. Discharge this afternoon pending void.
--- NOTE | 2018-11-21 10:20 | P.DS ---
Providers Expected date of discharge: 11/21/18 Attending physician: Gaviota Ratliff Primary care physician: Jake Hidalgoeldor - Discharge Diagnosis(es) (1) Panniculitis Current Visit: Yes Status: Acute (2) Hypothyroidism Current Visit: Yes Status: Acute (3) S/P laparoscopic sleeve gastrectomy Current Visit: No Status: Acute Hospital Course: 48-year-old female status post sleeve gastrectomy on 08/06/2016. At her height of 5 feet 6 inches, her ideal body weight is 154 pounds. Her highest weight was 295 pounds. Today she comes in weighing 181 pounds. Total weight loss is 114 pounds. Percent excess weight loss is 81 %. Body mass index is reduced from 47.7 down to 29.2. She still has severe panniculitis despite prescription treatment with topical antifungals and steroid creams. She reports worsening back pain and difficulty with management of exercising and grooming from her pannus. Patient underwent panniculectomy on 11/20/18. Evans catheter will be discontinued this morning. Discharge instructions were reviewed in detail with patient by Dr. Ratliff including JAYMIE teaching. Patient may be discharged home this afternoon. She is to follow up in the bariatric center in 48 hours. DISCHARGE DIAGNOSES: 1. Panniculitis, s/p panniculectomy 2. Body mass index reduced from 47.7 down to 29.2 3. Hypertensive heart disease, resolved. 4. Status post sleeve gastrectomy. 5. Hypothyroidism. 6. Central adiposity Nurse practitioner note has been reviewed by physician. Signing provider agrees with the documented findings, assessment, and plan of care. Plan - Discharge Summary Discharge Rx Participant: No New Discharge Prescriptions: New Ibuprofen [Motrin] 600 mg PO Q8HR PRN #90 tab PRN Reason: Pain Omeprazole 20 mg PO DAILY #30 cap HYDROcodone/APAP 5-325MG [[place] 5-325] 1 tab PO Q4HR PRN 3 Days #18 tab PRN Reason: Pain Continue Cholecalciferol [Vitamin D3] 400 unit PO DAILY Levothyroxine Sodium [Synthroid] 125 mcg PO DAILY #90 tab Multivitamins, Thera [Multivitamin (formulary)] 1 tab PO DAILY Discharge Medication List Cholecalciferol [Vitamin D3] 400 unit PO DAILY 11/25/16 [History] Levothyroxine Sodium [Synthroid] 125 mcg PO DAILY #90 tab 01/04/18 [Rx] Multivitamins, Thera [Multivitamin (formulary)] 1 tab PO DAILY 11/09/18 [History ] HYDROcodone/APAP 5-325MG [[place] 5-325] 1 tab PO Q4HR PRN 3 Days #18 tab [Rx] Ibuprofen [Motrin] 600 mg PO Q8HR PRN #90 tab 11/21/18 [Rx] Omeprazole 20 mg PO DAILY #30 cap 11/21/18 [Rx] Follow up Appointment(s)/Referral(s): Bariatric Center,. [NON-STAFF] - 11/23/18 Patient Instructions/Handouts: Sarthak-Huitron Drain Care (DC), Abdominal Binder (DC), Panniculectomy (DC) Activity/Diet/Wound Care/Special Instructions: NO lifting over 4 pounds in 4 weeks. No shower. No bathtub soaks. Record JAYMIE drain output daily and strip drains to prevent clogging. Sleep with head of bed up at 30 to 45 degrees. Walk with hips flexed to prevent tear of your incision. Dressings to be removed by your doctor in the office. EAT 75 G PROTEIN DAILY FOR OPTIMAL RECOVERY. Discharge Disposition: HOME SELF-CARE
[2018-11-21] MEDS ORDERED: MAGNESIUM HYDROXIDE 2,400 MG/10 ML CUP PO PRN (12:45)
[2018-11-21] MEDS ORDERED: KETOROLAC 30 MG/ML 1 ML VIAL IVP STA (12:48)
== END 2018-11-21 13:45 | disposition home or self-care (01) ==
LOC: OR 05:45 → 4SSUR 10:12 → OR 11-21 13:45
PROVIDERS: ATTEND Surgery Plastic and Reconstructive Surgery
DX: M79.3 Panniculitis, unspecified (principal); Z98.84 Bariatric surgery status; E66.9 Obesity, unspecified; Z68.29 Body mass index [BMI] 29.0-29.9, adult; E03.9 Hypothyroidism, unspecified; E55.9 Vitamin D deficiency, unspecified; Z79.890 Hormone replacement therapy; J45.909 Unspecified asthma, uncomplicated
CPT/HCPCS: 94760; 97161; 81025; 15830; J2250; J1644; J1100; J2405; J2001; J1650; J3010; J1885; J1170; J0131; J0330; J2704; J0690

== ENCOUNTER → 2018-11-22 | Outpatient (CLI) | payer OTHER ==
--- NOTE | 2018-11-22 13:47 | P.PN ---
Subjective Progress Note Date: 11/22/18 DATE OF SERVICE: 11/22/2018 CHIEF COMPLAINT: Status post panniculectomy. HISTORY OF PRESENT ILLNESS: Lisha Haro is a 48-year-old female status post sleeve gastrectomy on 08/06/2016. She is over 2 years out. She is status post panniculectomy 11/20/2018. She is postoperative day 2. She comes in with bleeding at her left drain with sanguinous output. No dizziness. No palpitations. At her height of 5 feet 6 inches, her ideal body weight is 154 pounds. Her highest weight was 295 pounds. Today she comes in weighing 183 pounds unchanged from visit 3 weeks ago. Total weight loss is 112 pounds. Percent excess weight loss is 80 %. Body mass index is reduced from 47.7 down to 29.5. PHYSICAL EXAM: VITAL SIGNS: 5 feet 6 inches, 183 pounds. Body mass index 29.5 Vital Signs Temp 98.4 F 11/22/18 13:41 Pulse 71 11/22/18 13:41 Resp 16 11/22/18 13:41 BP 113/68 11/22/18 13:41 Pulse Ox ABDOMEN: Incisions and dressings intact. JAYMIE sanguinous serous. Viable skin flaps. GENERAL: Well-developed female in no acute distress. NECK: No palpable lymphadenopathy or nodules. HEENT: No scleral icterus. Extraocular movements grossly intact. Moist buccal mucosa. Neck is supple without lymphadenopathy. CHEST: Nonlabored respirations with equal bilateral excursions. CARDIOVASCULAR: Regular rate and rhythm. MUSCULOSKELETAL: No clubbing or cyanosis. NEURO: Cranial nerves 2-12 intact grossly intact. No focal or lateralizing signs. PSYCH: Appropriate affect. Alert and oriented to person, place and time. SKIN: Well perfused. Good skin turgor. ASSESSMENT: 1. Morbid obesity due to excess calories. 2. Body mass index reduced from 47.7 down to 29.5 3. Hypertensive heart disease, resolved. 4. Status post sleeve gastrectomy. 5. Status post panniculectomy PLAN: 1. Binder to be adjusted 2. JAYMIE stays in 2 weeks. 3. No lifting for next 6 to 8 weeks 4. Dressing changes weekly.
[2018-11-22 13:48] VITALS: BP 113/68; PULSE 71; RESP 16; TEMP 98.4; BMI 29.5
== END | disposition home or self-care (01) ==
LOC: BARWHC3 12:53
PROVIDERS: ATTEND Surgery Plastic and Reconstructive Surgery
DX: Z48.817 Encounter for surgical aftercare following surgery on the skin and subcutaneous tissue (principal); E66.01 Morbid (severe) obesity due to excess calories; Z68.29 Body mass index [BMI] 29.0-29.9, adult; Z98.84 Bariatric surgery status; Z98.890 Other specified postprocedural states
CPT/HCPCS: 99211

== ENCOUNTER → 2018-11-24 | Outpatient (CLI) | payer OTHER ==
[2018-11-24 11:27] VITALS: BP 118/78; PULSE 58; TEMP 98.7; BMI 31.5
--- NOTE | 2018-11-24 12:15 | P.PN ---
Subjective Progress Note Date: 11/24/18 No infection or cellulitis along wounds. All external dressings discontinued. Blue pad placed as a barrier between binder and skin. Dressing change in 5 days in size. JPs are serosanguineous on the right and serosanguineous on the left. She reports mild fatigue. Protein intake over 75 grams advised. Objective - Vital Signs Vital signs: Vital Signs Temp 98.7 F 11/24/18 10:34 Pulse 58 L 11/24/18 10:34 Resp BP 118/78 11/24/18 10:34 Pulse Ox Intake & Output 11/23/18 11/24/18 11/24/18 18:59 06:59 18:59 Weight 88.587 kg
== END | disposition home or self-care (01) ==
LOC: BARWHC3 09:59
PROVIDERS: ATTEND Surgery Plastic and Reconstructive Surgery
DX: R53.83 Other fatigue (principal)
CPT/HCPCS: 99212

== ENCOUNTER → 2018-11-29 | Outpatient (CLI) | payer OTHER ==
[2018-11-29 13:28] VITALS: BP 134/81; PULSE 70; RESP 16; TEMP 98.6; BMI 31.4
--- NOTE | 2018-11-29 13:36 | P.PN ---
Subjective Progress Note Date: 11/29/18 HPI: DATE OF SERVICE: 11/29/2018 CHIEF COMPLAINT: Status post panniculectomy. HISTORY OF PRESENT ILLNESS: Lisha Haro is a 48-year-old female status post panniculectomy 11/20/2018. She is postoperative day 9. She is eating protein intake of 75 grams daily. At her height of 5 feet 6 inches, her ideal body weight is 154 pounds. Her highest weight was 295 pounds. Today she comes in weighing 195 pounds unchanged from 1 week ago. Total weight loss is 100 pounds. Percent excess weight loss is 71 %. Body mass index is reduced from 47.7 down to 31.5. PHYSICAL EXAM: VITAL SIGNS: 5 feet 6 inches, 195 pounds. Body mass index 31.5 Vital Signs Temp 98.6 F 11/29/18 13:23 Pulse 70 11/29/18 13:23 Resp 16 11/29/18 13:23 BP 134/81 11/29/18 13:23 Pulse Ox ABDOMEN: No infection or cellulitis along wounds. JPs are serosanguineous. Drains are dark but scant. Drains were stripped GENERAL: Well-developed female in no acute distress. NECK: No palpable lymphadenopathy or nodules. HEENT: No scleral icterus. Extraocular movements grossly intact. Moist buccal mucosa. Neck is supple without lymphadenopathy. CHEST: Nonlabored respirations with equal bilateral excursions. CARDIOVASCULAR: Regular rate and rhythm. MUSCULOSKELETAL: No clubbing or cyanosis. NEURO: Cranial nerves 2-12 intact grossly intact. No focal or lateralizing signs. PSYCH: Appropriate affect. Alert and oriented to person, place and time. SKIN: Well perfused. Good skin turgor. ASSESSMENT: 1. Morbid obesity due to excess calories. 2. Body mass index reduced from 47.7 down to 29.5 3. Hypertensive heart disease, resolved. 4. Status post sleeve gastrectomy. 5. Status post panniculectomy PLAN: 1. Follow up in 1 week 2. Possible removal of JAYMIE next week. Objective - Vital Signs Vital signs: Vital Signs Temp 98.6 F 11/29/18 13:23 Pulse 70 11/29/18 13:23 Resp 16 11/29/18 13:23 BP 134/81 11/29/18 13:23 Pulse Ox Intake & Output 11/28/18 11/29/18 11/29/18 18:59 06:59 18:59 Weight 88.451 kg
== END | disposition home or self-care (01) ==
LOC: BARWHC3 13:00
PROVIDERS: ATTEND Surgery Plastic and Reconstructive Surgery
DX: Z48.817 Encounter for surgical aftercare following surgery on the skin and subcutaneous tissue (principal); E66.01 Morbid (severe) obesity due to excess calories; Z98.84 Bariatric surgery status; Z98.890 Other specified postprocedural states; Z68.29 Body mass index [BMI] 29.0-29.9, adult
CPT/HCPCS: 99211

== ENCOUNTER → 2018-12-04 | Outpatient (CLI) | payer OTHER ==
[2018-12-04 10:38] VITALS: BP 120/81; PULSE 67; TEMP 98.3; BMI 31.6
--- NOTE | 2018-12-04 11:03 | P.PN ---
Subjective Progress Note Date: 12/04/18 HPI: She is 2 weeks out following panniculectomy. JAYMIE outputs for over 2 days less than 10 mL serosanguineous simple sides. She stated over 85 g protein daily. She reports weight gain over 5-10 pounds since surgery. Pain was controlled. She has been wearing an abdominal binder at all times. ABDOMEN: External tape along incision discontinued. No signs of cellulitis. JAYMIE discontinued. Skin cleansed with antiseptic stick. Binder placed snug fit. ASSESSMENT: 1. Status post panniculectomy, 6 pound excision PLAN: 1. Wear abdominal binder at all times except for showering to decrease risk for postoperative seroma. 2. Follow-up at the end of the week to monitor seroma. 3. Follow-up in the bariatric center in 2 weeks. 4. Recommend increasing size of abdominal binder for comfort Objective - Vital Signs Vital signs: Vital Signs Temp 98.3 F 12/04/18 09:59 Pulse 67 12/04/18 09:59 Resp BP 120/81 12/04/18 09:59 Pulse Ox Intake & Output 12/03/18 12/04/18 12/04/18 18:59 06:59 18:59 Weight 88.723 kg
== END | disposition home or self-care (01) ==
LOC: BARWHC3 09:58
PROVIDERS: ATTEND Surgery Plastic and Reconstructive Surgery
DX: Z48.815 Encounter for surgical aftercare following surgery on the digestive system (principal); Z98.890 Other specified postprocedural states
CPT/HCPCS: 99212

== ENCOUNTER → 2018-12-08 | Outpatient (CLI) | payer OTHER ==
--- NOTE | 2018-12-08 11:46 | P.PN ---
Subjective Progress Note Date: 12/08/18 DATE OF SERVICE: 12/08/2018 CHIEF COMPLAINT: Status post panniculectomy. HISTORY OF PRESENT ILLNESS: Lisha Haro is a 48-year-old female status post panniculectomy 11/20/2018. She is 3 weeks out. She denies any swelling of the abdomen or fullness. She has no pain. At her height of 5 feet 6 inches, her ideal body weight is 154 pounds. Her highest weight was 295 pounds. Today she comes in weighing 188 pounds from 195 pounds, 4 days ago. She has lost 8 pounds in 1 week. Total weight loss is 107 pounds. Percent excess weight loss is 76 %. Body mass index is reduced from 47.7 down to 30.0. PHYSICAL EXAM: VITAL SIGNS: 5 feet 6 inches, 188 pounds. Body mass index 30.3 Vital Signs Temp 97.8 F 12/08/18 12:39 Pulse 62 12/08/18 12:39 Resp BP 108/74 12/08/18 12:39 Pulse Ox ABDOMEN: Incisions are well granulated. No infection. No abdominal seroma. Abdominal binder re-positioned. No cellulitis. GENERAL: Well-developed female in no acute distress. NECK: No palpable lymphadenopathy or nodules. HEENT: No scleral icterus. Extraocular movements grossly intact. Moist buccal mucosa. Neck is supple without lymphadenopathy. CHEST: Nonlabored respirations with equal bilateral excursions. CARDIOVASCULAR: Regular rate and rhythm. MUSCULOSKELETAL: No clubbing or cyanosis. NEURO: Cranial nerves 2-12 intact grossly intact. No focal or lateralizing signs. PSYCH: Appropriate affect. Alert and oriented to person, place and time. SKIN: Well perfused. Good skin turgor. ASSESSMENT: 1. Morbid obesity due to excess calories. 2. Body mass index reduced from 47.7 down to 30.3 3. Hypertensive heart disease, resolved. 4. Status post sleeve gastrectomy. 5. Status post panniculectomy, 6 pound excision PLAN: 1. Follow-up in 2 weeks. 2. Recommended to measure abdominal wall for any new abdominal wall seroma. 3. Will need new abdominal binder
[2018-12-08 12:44] VITALS: BP 108/74; PULSE 62; TEMP 97.8; BMI 30.3
== END | disposition home or self-care (01) ==
LOC: BARWHC3 10:53
PROVIDERS: ATTEND Surgery Plastic and Reconstructive Surgery
DX: Z48.815 Encounter for surgical aftercare following surgery on the digestive system (principal); E66.01 Morbid (severe) obesity due to excess calories; Z68.30 Body mass index [BMI] 30.0-30.9, adult; Z98.84 Bariatric surgery status; Z98.890 Other specified postprocedural states
CPT/HCPCS: 99212

== ENCOUNTER → 2018-12-20 | Outpatient (CLI) | payer OTHER ==
[2018-12-20 14:23] VITALS: BP 118/80; PULSE 59; RESP 16; TEMP 98; BMI 30.8
--- NOTE | 2018-12-20 14:45 | P.PN ---
Subjective Progress Note Date: 12/20/18 DATE OF SERVICE: 12/20/2018 CHIEF COMPLAINT: Status post panniculectomy HISTORY OF PRESENT ILLNESS: Lisha Haro is a 48-year-old female status post panniculectomy 11/20/2018. She is 1 month out. She is doing well. No seroma noted. At her height of 5 feet 6 inches, her ideal body weight is 154 pounds. Her highest weight was 295 pounds. Today she comes in weighing 191 pounds from 188 pounds, 2 weeks ago. She has gained 3 pounds in 2 weeks. Total weight loss is 104 pounds. Percent excess weight loss is 74 %. Body mass index is reduced from 47.7 down to 30.8. PHYSICAL EXAM: VITAL SIGNS: 5 feet 6 inches, 191 pounds. Body mass index 30.8 Vital Signs Temp 98 F 12/20/18 14:21 Pulse 59 L 12/20/18 14:21 Resp 16 12/20/18 14:21 BP 118/80 12/20/18 14:21 Pulse Ox ABDOMEN: Incisions are well granulated. No abdominal seroma or swelling. No infection. GENERAL: Well-developed female in no acute distress. NECK: No palpable lymphadenopathy or nodules. HEENT: No scleral icterus. Extraocular movements grossly intact. Moist buccal mucosa. Neck is supple without lymphadenopathy. CHEST: Nonlabored respirations with equal bilateral excursions. CARDIOVASCULAR: Regular rate and rhythm. MUSCULOSKELETAL: No clubbing or cyanosis. NEURO: Cranial nerves 2-12 intact grossly intact. No focal or lateralizing signs. PSYCH: Appropriate affect. Alert and oriented to person, place and time. SKIN: Well perfused. Good skin turgor. ASSESSMENT: 1. Morbid obesity due to excess calories. 2. Body mass index reduced from 47.7 down to 30.8 3. Hypertensive heart disease, resolved. 4. Status post sleeve gastrectomy. 5. Status post panniculectomy, 6 pound excision PLAN: 1. Continue with protein intake over 70 grams daily 2. Follow up in 4 weeks for seroma follow-up 3. May exercise 4. No active exercise such as lifting. Objective - Vital Signs Vital signs: Vital Signs Temp 98 F 12/20/18 14:21 Pulse 59 L 12/20/18 14:21 Resp 16 12/20/18 14:21 BP 118/80 12/20/18 14:21 Pulse Ox Intake & Output 12/19/18 12/20/18 12/20/18 18:59 06:59 18:59 Weight 86.636 kg
== END ==
LOC: BARWHC3 13:13
PROVIDERS: ATTEND Surgery Plastic and Reconstructive Surgery
DX: Z48.817 Encounter for surgical aftercare following surgery on the skin and subcutaneous tissue (principal)
CPT/HCPCS: 99211

== ENCOUNTER → 2019-01-17 | Outpatient (CLI) | payer OTHER ==
[2019-01-17 12:53] VITALS: BP 136/89; PULSE 94; TEMP 97.8; BMI 29.8
--- NOTE | 2019-01-17 13:31 | P.PN ---
Subjective Progress Note Date: 01/17/19 DATE OF SERVICE: 01/17/2019 CHIEF COMPLAINT: Status post panniculectomy HISTORY OF PRESENT ILLNESS: Lisha Haro is a 48-year-old female status post panniculectomy 11/20/2018. She is 2 months out. She is doing well. No reports of abdominal pain. She reports wearing her binder every day for the last 2 months. At her height of 5 feet 6 inches, her ideal body weight is 154 pounds. Her highest weight was 295 pounds. Today she comes in weighing 185 pounds from 191 pounds, 1 month ago. She has lost 6 pounds in 1 month. Total weight loss is 110 pounds. Percent excess weight loss is 78 %. Body mass index is reduced from 47.7 down to 29.9. PHYSICAL EXAM: VITAL SIGNS: 5 feet 6 inches, 185 pounds. Body mass index 29.9 ABDOMEN: No seroma. Skin is insensate. GENERAL: Well-developed female in no acute distress. NECK: No palpable lymphadenopathy or nodules. HEENT: No scleral icterus. Extraocular movements grossly intact. Moist buccal mucosa. Neck is supple without lymphadenopathy. CHEST: Nonlabored respirations with equal bilateral excursions. CARDIOVASCULAR: Regular rate and rhythm. MUSCULOSKELETAL: No clubbing or cyanosis. NEURO: Cranial nerves 2-12 intact grossly intact. No focal or lateralizing signs. PSYCH: Appropriate affect. Alert and oriented to person, place and time. SKIN: Well perfused. Good skin turgor. ASSESSMENT: 1. Morbid obesity due to excess calories. 2. Body mass index reduced from 47.7 down to 29.9 3. Hypertensive heart disease, resolved. 4. Status post sleeve gastrectomy. 5. Status post panniculectomy, 6 pound excision PLAN: 1. Recommend cautious exercise of the abdominal wall to prevent injury. 2. Follow up as needed. 3. Follow up yearly. Objective - Vital Signs Vital signs: Vital Signs Temp 97.8 F 01/17/19 12:46 Pulse 94 01/17/19 12:46 Resp BP 136/89 01/17/19 12:46 Pulse Ox Intake & Output 01/16/19 01/17/19 01/17/19 18:59 06:59 18:59 Weight 83.915 kg
--- NOTE | 2019-01-17 18:43 | P.PN ---
Progress Note - Text Progress Note Date: 01/17/19 To Whom It May Concern: Lisha Haro is under my general surgical care. She may return to work without restrictions Tuesday, January 22, 2019. Feel free to contact us if questions. Sincerely Dr. Gaviota Ratliff
== END | disposition home or self-care (01) ==
LOC: BARWHC3 12:36
PROVIDERS: ATTEND Surgery Plastic and Reconstructive Surgery
DX: Z48.815 Encounter for surgical aftercare following surgery on the digestive system (principal); E66.01 Morbid (severe) obesity due to excess calories; Z68.29 Body mass index [BMI] 29.0-29.9, adult; Z98.84 Bariatric surgery status; Z98.890 Other specified postprocedural states
CPT/HCPCS: 99211

== ENCOUNTER → 2020-05-14 | Outpatient (CLI) | payer OTHER ==
[2020-05-14 13:27] VITALS: BP 139/85; PULSE 66; TEMP 98; BMI 32.4
--- NOTE | 2020-05-14 14:18 | P.PN ---
Subjective Progress Note Date: 05/14/20 DATE OF SERVICE: 05/14/2020 CHIEF COMPLAINT: Status post sleeve gastrectomy HISTORY OF PRESENT ILLNESS: Lisha Haro is a 50-year-old female status post sleeve gastrectomy on 08/06/2016. She is also status post panniculectomy 11/20/2018. She comes in with weight gain in the past year. She had lost her i nsurance and was not able to afford her multi-vitamins and supplements. Now her healthcare is re-established as she has insurance. She reports chronic constipation and is taking a supplement Papya enzyme. She reports drinking 100 oz of water daily. She denies any active abdominal pain. She does report worsening gastroesophageal reflux disease. Separately, she is due for colonoscopy screening. She presents today with new concerns of gastroesophageal reflux disease, weight gain including colonoscopy evaluation. At her height of 5 feet 6 inches, her ideal body weight is 154 pounds. Her hi ghest weight was 295 pounds, BMI 47.7. Today she comes in weighing 201 pounds from 185 pounds, over 1 year ago. She has gained 16 pounds in 1 year. Total weight loss is 94 pounds lifetime. Lifetime percent excess weight loss is 67 %. Body mass index is reduced from 47.7 down to 32.4. PAST MEDICAL HISTORY: 1. Hypertension. 2. Morbid obesity, BMI 47.7, initial 3. Hypothyroidism. 4. Vitamin D deficiency. PAST SURGICAL HISTORY: 1. Adenoidectomy. 2. Tonsillectomy. 3. Uterine ablation. 4. History of problems with anesthesia 5. Status post sleeve gastrectomy 6. Status post panniculectomy MEDICATIONS: Home Medications Medication Instructions Recorded Confirmed Cholecalciferol [Vitamin D3] 400 unit PO DAILY 11/25/16 05/14/20 Multivitamins, Thera [Multivitamin 1 tab PO DAILY 11/09/18 05/14/20 (formulary)] Ubidecarenone [Co Q-10] 100 mg PO DAILY 01/17/19 05/14/20 Previous Rx's Medication Instructions Recorded Levothyroxine Sodium [Synthroid] 125 mcg PO DAILY #90 tab 01/04/18 Ibuprofen [Motrin] 600 mg PO Q8HR PRN #90 tab 11/21/18 Magnesium Hydroxide [Milk of 2,400 mg PO DAILY #1 bottle 11/21/18 Magnesia Concentrate] ALLERGIES: Denies. SOCIAL HISTORY: Lifelong nontobacco user. FAMILY HISTORY: She has family history of morbid obesity, including CVA, diabetes, hyperlipidemia, hypertension, osteoarthritis as well as bipolar manic depressive disorder. REVIEW OF SYSTEMS: CONSTITUTIONAL: At her height of 5 feet 6 inches, her ideal body weight is 154 pounds. Her highest weight was 295 pounds. Body mass index is reduced from 47.7. MUSCULOSKELETAL: History of lower back worsened with pannus now improved follow ing panniculectomy. Improvement of lower extremity joints. GASTROINTESTINAL: No active gastroesophageal reflux disease. No reports of dumping syndrome. CARDIOVASCULAR: History of hypertension, now resolved. No reports of palpitations. ENDOCRINE: History of hypothyroidism. No diabetes. HEENT: Denies troubles with vision or hearing. No reports of dysphagia. RESPIRATORY: No reports of pneumonia. NEURO: No reports of stroke or seizure disorders. PSYCH: No reports of active depression or suicidal ideation. HEMATOLOGIC: No reports of easy bruising or bleeding. SKIN: History of chronic skin rashes of the pannus. No skin cancer. PHYSICAL EXAM: VITAL SIGNS: 5 feet 6 inches, 201 pounds. Body mass index 32.4 Vital Signs Temp 98 F 05/14/20 13:26 Pulse 66 05/14/20 13:26 Resp BP 139/85 05/14/20 13:26 Pulse Ox ABDOMEN: Soft, nontender. No cellulitis. GENERAL: Well-developed female in no acute distress. NECK: No palpable lymphadenopathy or nodules. HEENT: No scleral icterus. Extraocular movements grossly intact. Moist buccal mucosa. Neck is supple without lymphadenopathy. CHEST: Nonlabored respirations with equal bilateral excursions. CARDIOVASCULAR: Regular rate and rhythm. MUSCULOSKELETAL: No clubbing or cyanosis. NEURO: Cranial nerves 2-12 intact grossly intact. No focal or lateralizing signs. PSYCH: Appropriate affect. Alert and oriented to person, place and time. SKIN: Well perfused. Good skin turgor. ASSESSMENT: 1. Body mass index reduced from 47.7 down to 32.4 2. Hypertensive heart disease 3. Status post sleeve gastrectomy. 4. Hypothyroidism. 5. Colonoscopy screening 6. Gastroesophageal reflux disease PLAN: 1. She is due for a colonoscopy. Recommend colonoscopy. 2. Recommend bariatric labs as her last was in 2018. 3. She has gastroesophageal reflux disease with worsening symptoms, recommend upper endoscopy. Laboratory Last Values WBC 7.8 k/uL (3.8-10.6) 05/14/20 14:40 RBC 5.18 m/uL (3.80-5.40) 05/14/20 14:40 Hgb 14.4 gm/dL (11.4-16.0) 05/14/20 14:40 Hct 46.1 % (34.0-46.0) H 05/14/20 14:40 MCV 89.1 fL (80.0-100.0) 05/14/20 14:40 MCH 27.8 pg (25.0-35.0) 05/14/20 14:40 MCHC 31.3 g/dL (31.0-37.0) 05/14/20 14:40 RDW 12.8 % (11.5-15.5) 05/14/20 14:40 Plt Count 267 k/uL (150-450) 05/14/20 14:40 PT 10.2 sec (9.9-11.9) 05/14/20 14:40 INR 0.95 (0.90-1.11) 05/14/20 14:40 APTT 26.9 sec (24.7-29.9) 05/14/20 14:40 Sodium 141 mmol/L (135-145) 05/14/20 14:40 Potassium 4.0 mmol/L (3.5-5.5) 05/14/20 14:40 Chloride 101 mmol/L (96-109) 05/14/20 14:40 Carbon Dioxide 31.1 mmol/L (21.6-31.8) 05/14/20 14:40 Anion Gap 8.90 mmol/L (4.00-12.00) 05/14/20 14:40 BUN 19.0 mg/dL (9.0-27.0) 05/14/20 14:40 Creatinine 0.8 mg/dL (0.6-1.5) 05/14/20 14:40 Est GFR (CKD-EPI)AfAm 98.9 (60.0-200.0) 05/14/20 14:40 Est GFR (CKD-EPI)NonAf 85.4 (60.0-200.0) 05/14/20 14:40 BUN/Creatinine Ratio 23.75 Ratio (12.00-20.00) H 05/14/20 14:40 Glucose 91 mg/dL (70-110) 05/14/20 14:[address] Glu mg/dL 103 05/14/20 14:40 Hemoglobin A1c 5.2 % (4.0-6.0) 05/14/20 14:40 Calcium 9.7 mg/dL (8.7-10.3) 05/14/20 14:40 Phosphorus 5.2 mg/dL (2.4-5.1) H 05/14/20 14:40 Magnesium 1.8 mg/dL (1.5-2.4) 05/14/20 14:40 Iron 43 ug/dL (50-170) L 05/14/20 14:40 TIBC 342 ug/dL (228-460) 05/14/20 14:40 % Saturation 12.57 (12.00-45.00) 05/14/20 14:40 Ferritin 26.8 ng/mL (10.0-291.0) 05/14/20 14:40 Total Bilirubin 0.6 mg/dL (0.3-1.2) 05/14/20 14:40 AST 24 U/L (13-35) 05/14/20 14:40 ALT 22 U/L (8-44) 05/14/20 14:40 Alkaline Phosphatase 67 U/L (41-126) 05/14/20 14:40 Total Protein 7.0 g/dL (6.2-8.2) 05/14/20 14:40 Albumin 4.50 g/dL (3.80-4.90) 05/14/20 14:40 Globulin 2.5 g/dL (1.6-3.3) 05/14/20 14:40 Albumin/Globulin Ratio 1.80 g/dL (1.60-3.17) 05/14/20 14:40 Prealbumin 29.0 mg/dL (18.0-42.0) 05/14/20 14:40 Triglycerides 99.0 mg/dL (0.0-149.0) 05/14/20 14:40 Cholesterol 199 mg/dL (0-200) 05/14/20 14:40 LDL Cholesterol, Calc 102.2 mg/dL (0.0-131.0) 05/14/20 14:40 VLDL Cholesterol, Calc 19.80 mg/dL (5.00-40.00) 05/14/20 14:40 HDL Cholesterol 77.0 mg/dL (40.0-60.0) H 05/14/20 14:40 Cholesterol/HDL Ratio 2.58 05/14/20 14:40 Vitamin A 77 ug/dL (38-106) 05/14/20 14:40 Vitamin B1 76 ug/L (38-122) 05/14/20 14:40 Vitamin B12 853.0 pg/mL (200.0-944.0) 05/14/20 14:40 Vitamin D 25-Hydroxy 65.0 ng/mL (30.0-100.0) 05/14/20 14:40 Folate 15.7 ng/mL 05/14/20 14:40 TSH 0.120 uIU/mL (0.350-5.500) L 05/14/20 14:40 PTH Intact 39.3 pg/mL (14.0-72.0) 05/14/20 14:40 Copper 1263 ug/L (810-1990) 05/14/20 14:40 Selenium 135 mcg/L (63-160) 05/14/20 14:40 Zinc 78 ug/dL (60-130) 05/14/20 14:40 Iron is low, recommend supplement Objective - Vital Signs Vital signs: Vital Signs Temp 98 F 05/14/20 13:26 Pulse 66 05/14/20 13:26 Resp BP 139/85 05/14/20 13:26 Pulse Ox Intake & Output 05/13/20 05/14/20 05/14/20 18:59 06:59 18:59 Weight 91.172 kg - Labs CBC & Chem 7: 05/14/20 14:40 05/14/20 14:40
[2020-05-14 15:06] LABS: HCT 46.1 % (34.0-46.0); HGB 14.4 gm/dL (11.4-16.0); MCH 27.8 pg (25.0-35.0); MCHC 31.3 g/dL (31.0-37.0); MCV 89.1 fL (80.0-100.0); Mean Platelet Volume 7.3; Platelet Count 267 k/uL (150-450); RBC 5.18 m/uL (3.80-5.40); RDW 12.8 % (11.5-15.5); WBC 7.8 k/uL (3.8-10.6)
[2020-05-14 20:39] LABS: Hemoglobin A1C 5.2 % (4.0-6.0)
[2020-05-15 01:23] LABS: % Iron Saturation 12.57 (12.00-45.00); African American GFR (CKD) 98.9 (60.0-200.0); Albumin 4.5 g/dL (3.80-4.90); Albumin/Globulin Ratio 1.8 (1.60-3.17); Anion Gap 8.9 mmol/L (4.00-12.00); BUN/Creat Ratio 23.75 Ratio (12.00-20.00); Calcium 9.7 mg/dL (8.7-10.3); Carbon Dioxide 31.1 mmol/L (21.6-31.8); Chol/HDL Ratio 2.58; Globulin 2.5 g/dL (1.6-3.3); LDL Cholesterol,Calculated 102.2 mg/dL (0.0-131.0); Magnesium 1.8 mg/dL (1.5-2.4); Non-African American GFR(CKD) 85.4 (60.0-200.0); Phosphorus 5.2 mg/dL (2.4-5.1); Total Bilirubin 0.6 mg/dL (0.3-1.2); VLDL Calculation 19.8 mg/dL (5.00-40.00)
[2020-05-15 01:31] LABS: Ferritin 26.8 ng/mL (10.0-291.0)
[2020-05-15 02:30] LABS: Folate, Serum 15.7 ng/mL
[2020-05-15 18:29] LABS: INR 0.95 (0.90-1.11); Partial Thromboplastin Time 26.9 sec (24.7-29.9); Prothrombin Time 10.2 sec (9.9-11.9)
[2020-05-18 14:19] LABS: Selenium 135 mcg/L (63-160)
[2020-05-19 15:20] LABS: Zinc, Serum 78 ug/dL (60-130)
[2020-05-20 10:02] LABS: Vitamin A 77 ug/dL (38-106)
[2020-05-21 12:40] LABS: Vit B1(Thiamine) 76 ug/L (38-122)
== END | disposition home or self-care (01) ==
LOC: BARWHC3 12:34
PROVIDERS: ATTEND Surgery Plastic and Reconstructive Surgery
DX: K21.9 Gastro-esophageal reflux disease without esophagitis (principal); E03.9 Hypothyroidism, unspecified; I11.9 Hypertensive heart disease without heart failure; E55.9 Vitamin D deficiency, unspecified; Z98.84 Bariatric surgery status; Z12.11 Encounter for screening for malignant neoplasm of colon; Z79.891 Long term (current) use of opiate analgesic; Z79.890 Hormone replacement therapy; Z79.899 Other long term (current) drug therapy
CPT/HCPCS: 84255; 84134; 84425; 80061; 80053; 82607; 82728; 82525; 82746; 83540; 83550; 83735; 84100; 84443; 84590; 84630; 85027; 85610; 85730; 82306; 83970; 83036; 36415; G0463; 99211

== ENCOUNTER 2020-08-13 09:12 | Day surgery (SDC) | payer OTHER ==
[2020-08-07 17:25] VITALS: BMI 32.4
[~2020-08-13 09:12] MED LIST changes: -ACETAMINOPHEN IV (For NPO) 1,000 MG in EMPTY BAG 1 BAG IVPB STA; -DEXAMETHASONE SOD PHOSPHATE 10 MG/ML 1 ML VIAL IV ONE; -HEPARIN SODIUM,PORCINE 5,000 UNIT/ML 1 ML VIAL SQ ONE; +LACTATED RINGERS 1,000 ML IV SCH; +LIDOCAINE 1% (10MG/ML) FOR IV START INTRADERMA PRN; -LIDOCAINE 1% 20 ML VIAL (10MG/ML) FOR IV START INTRADERMA PRN; -MIDAZOLAM (PF) 2 MG/2 ML VIAL IV PRN; -ceFAZolin IN SWFI 2 GM/20 ML SYRINGE IVP ONE; -fentaNYL (PF) 50 MCG/ML 2 ML AMP IV PRN
[2020-08-13 09:47] VITALS: RESP 16; TEMP 98.5
--- NOTE | 2020-08-13 09:48 | P.GSHP ---
History of Present Illness H&P Date: 08/13/20 CHIEF COMPLAINT: GERD and colon screen HISTORY OF PRESENT ILLNESS: The patient is a 50-year-old female who presents with gastroesophageal reflux disease and need for colon screen. Upper and lower endoscopy were offered for further evaluation and management. PAST MEDICAL HISTORY: Please see list. PAST SURGICAL HISTORY: Please see list. MEDICATIONS: Please see list. ALLERGIES: Please see list. SOCIAL HISTORY: No illicit drug use FAMILY HISTORY: No reports of Crohn disease or ulcerative colitis. REVIEW OF ORGAN SYSTEMS: CONSTITUTIONAL: No reports of fevers or chills. GI: Denies any blood in stools or constipation. PHYSICAL EXAM: VITAL SIGNS: Stable GENERAL: Well-developed pleasant in no acute distress. HEENT: No scleral icterus. Extraocular movements grossly intact. Moist buccal mucosa. NECK: Supple without lymphadenopathy. CHEST: Unlabored respirations. Equal bilateral excursions. CARDIOVASCULAR: Regular rate and rhythm. Distal 2+ pulses. ABDOMEN: Soft, nondistended. MUSCULOSKELETAL: No clubbing, cyanosis, or edema. ASSESSMENT: 1. Gastroesophageal reflux disease 2. Colon screen. PLAN: 1. Recommend proceeding with an upper and lower endoscopy Past Medical History Past Medical History: Asthma, GERD/Reflux, Hypertension, Thyroid Disorder Additional Past Medical History / Comment(s): Asthma as a child. GERD, HTN resolved w/ wgt loss. Chronic constipation since Bariatric surgery. History of Any Multi-Drug Resistant Organisms: None Reported Past Surgical History: Adenoidectomy, Bariatric Surgery, Tonsillectomy, Uterine Ablation Additional Past Surgical History / Comment(s): EGD, sleeve gastrectomy 08/06/16, panniculectomy 11/20/18 Past Anesthesia/Blood Transfusion Reactions: Previous Problems w/ Anesthesia Additional Past Anesthesia/Blood Transfusion Reaction / Comment(s): During uterine ablation was acutely aware of sounds during procedure. Post Epidural for childbirth was "paralyzed" after delivery but feeling did come back after . No hx blood transfusion. Smoking Status: Never smoker - Past Family History Mother Family Medical History: No Reported History Father Family Medical History: COPD, Coronary Artery Disease (CAD), Thyroid Disorder Additional Family Medical History / Comment(s): Bipolar/manic depressive Medications and Allergies Home Medications Medication Instructions Recorded Confirmed Type Cholecalciferol [Vitamin D3] 400 unit PO DAILY 11/25/16 08/13/20 History Levothyroxine Sodium [Synthroid] 125 mcg PO DAILY #90 tab 01/04/18 08/13/20 Rx Multivitamins, Thera [Multivitamin 1 tab PO DAILY 11/09/18 08/13/20 History (formulary)] Coconut Oil Drops 1 dose PO DAILY 08/07/20 08/13/20 History Laxative 1 tab PO DAILY 08/07/20 08/13/20 History Allergies Allergy/AdvReac Type Severity Reaction Status Date / Time No Known Allergies Allergy Verified 08/13/20 09:45 Surgical - Exam Vital Signs Temp Pulse Resp BP Pulse Ox 98.5 F 58 L 16 146/83 98 08/13/20 09:46 08/13/20 09:46 08/13/20 09:46 08/13/20 09:46 08/13/20 09:46
[2020-08-13] MEDS ORDERED: LIDOCAINE 1% INJ 10MG/ML (20 ML MDV) ONE (10:19)
[2020-08-13] MEDS ORDERED: PROPOFOL 10 MG/ML 20 ML VIAL IV ONE (10:19)
--- NOTE | 2020-08-13 10:46 | P.PCN ---
Date of Procedure: 08/13/20 Description of Procedure: PREOPERATIVE DIAGNOSIS: Status post sleeve gastrectomy. Gastroesophageal reflux disease. POSTOPERATIVE DIAGNOSIS: Status post sleeve gastrectomy. Gastroesophageal reflux disease. Diaphragmatic hiatal hernia without obstruction. Chronic superficial gastritis. Distal esophageal spasm OPERATION: Esophagogastroduodenoscopy with cold forceps biopsies along the antrum. SURGEON: Gaviota Ratliff MD ANESTHESIA: MAC. INDICATIONS: The patient is a 50-year-old female who presents with a history of sleeve gastrectomy and gastroesophageal reflux disease. Benefits and risks of the procedure were described. Informed consent was obtained. DESCRIPTION: The patient was brought into the endoscopy suite and laid in the left lateral decubitus position. An Olympus gastroscope was passed along the posterior oropharynx down to the distal esophagus where the squamocolumnar junction was at 35 cm from the incisors remarkable for chronic erosive esophagitis, LA grade A without ulceration. The stomach was entered where she had a 6-cm hiatal hernia with a diaphragmatic hiatus found at 43 cm. The sleeve reservoir was large allowing easy retroflexion of the scope to view the lower esophageal valve. Chronic gastritis albeit mild was found along the antrum with cold biopsies obtained. The first through third portion of the duodenum was examined and unremarkable. The scope again had easily retroflexed along the antrum. The stomach was desufflated. The patient tolerated the procedure well. FINDINGS: No acute ulceration found along her sleeve. No corkscrewing sleeve gastrectomy. Squamocolumnar junction at 35 cm from the incisors. Diaphragmatic hiatus at 40 cm. Moderate large gastric reservoir with prior history of sleeve gastrectomy allowing easy retroflexion of the gastroscope to view the lower esophageal valve. Hiatal hernia 5 cm, fixed. LA grade A erosive esophagitis. No active duodenitis. Chronic gastritis. Distal esophageal spasm RECOMMENDATIONS: Upper endoscopy as needed. May benefit from antireflux operation. Continue with current therapy.
--- NOTE | 2020-08-13 10:50 | P.PCN ---
Date of Procedure: 08/13/20 Description of Procedure: PREOPERATIVE DIAGNOSIS: Colonoscopy screening. POSTOPERATIVE DIAGNOSIS: Colonoscopy screening. Diverticulosis, scattered. OPERATION: Colonoscopy to the cecum, ileocecal valve and appendiceal orifice. SURGEON: Gaviota Ratliff MD. ANESTHESIA: MAC. INDICATIONS: The patient is a 50-year-old female who presents for colonoscopy screening. Benefits and risks were described and informed consent was obtained. DESCRIPTION OF PROCEDURE: The patient had undergone Suprep. He had been brought into the operating room and laid in the left lateral decubitus position. After adequate intravenous sedation, the rectum was examined with 2% lidocaine jelly. External hemorrhoids were encountered. The rectal tone was within normal limits. No lesions were palpated in the rectal vault. An Olympus colonoscope was advanced until the cecum, ileocecal valve and appendiceal orifice were clearly viewed. The prep was good. Scattered diverticulosis was encountered. No colonic polyps were found. No evidence of focal colitis was found. Retroflexion of the scope demonstrated grade 1 internal hemorrhoids without active bleeding or inflammation. The colon was desufflated. The patient had tolerated the procedure well. Withdrawal time was over 6 minutes. FINDINGS: Aronchick preparation quality scale 2 (1-5) Internal hemorrhoids, grade 1 No external prolapsed hemorrhoids. No arteriovenous malformations. No adenomatous polyps. No focal colitis. Scattered sigmoid diverticulosis RECOMMENDATIONS: Lower endoscopy every 10 years, 2030 per screening guidelines; however down to 5 years with family history of colon polyps or cancer. Plan - Discharge Summary Discharge Rx Participant: No New Discharge Prescriptions: Continue Cholecalciferol [Vitamin D3] 400 unit PO DAILY Levothyroxine Sodium [Synthroid] 125 mcg PO DAILY #90 tab Multivitamins, Thera [Multivitamin (formulary)] 1 tab PO DAILY Coconut Oil Drops 1 dose PO DAILY Laxative 1 tab PO DAILY Discharge Medication List Cholecalciferol [Vitamin D3] 400 unit PO DAILY 11/25/16 [History] Levothyroxine Sodium [Synthroid] 125 mcg PO DAILY #90 tab 01/04/18 [Rx] Multivitamins, Thera [Multivitamin (formulary)] 1 tab PO DAILY 11/09/18 [History] Coconut Oil Drops 1 dose PO DAILY 08/07/20 [History] Laxative 1 tab PO DAILY 08/07/20 [History] [facility] [facility] [place] [place] [facility] [place] [facility] Patient Instructions/Handouts: Diverticulosis (ED), Diverticulosis Diet (GEN) Activity/Diet/Wound Care/Special Instructions: Repeat colonoscopy 10 years, 2030 or Cologaurd Discharge Disposition: HOME SELF-CARE
[2020-08-13 11:09] VITALS: BP 128/74; PULSE 50
== END 2020-08-13 11:47 | disposition home or self-care (01) ==
LOC: ORWHC2ENDO 09:12
PROVIDERS: ATTEND Surgery Plastic and Reconstructive Surgery
DX: Z12.11 Encounter for screening for malignant neoplasm of colon (principal); K22.4 Dyskinesia of esophagus; K44.9 Diaphragmatic hernia without obstruction or gangrene; K57.90 Diverticulosis of intestine, part unspecified, without perforation or abscess without bleeding; K29.30 Chronic superficial gastritis without bleeding; K59.09 Other constipation; K21.9 Gastro-esophageal reflux disease without esophagitis; E07.9 Disorder of thyroid, unspecified; J45.909 Unspecified asthma, uncomplicated; Z87.09 Personal history of other diseases of the respiratory system; Z98.84 Bariatric surgery status; Z98.890 Other specified postprocedural states; Z82.5 Family history of asthma and other chronic lower respiratory diseases; Z82.49 Family history of ischemic heart disease and other diseases of the circulatory system; Z83.49 Family history of other endocrine, nutritional and metabolic diseases; Z81.8 Family history of other mental and behavioral disorders; Z79.890 Hormone replacement therapy
CPT/HCPCS: 88305; 43239; J2001; J2704; G0121

== ENCOUNTER → 2020-09-03 | Outpatient (CLI) | payer OTHER ==
[2020-09-03 14:56] VITALS: BP 121/86; PULSE 68; RESP 18; TEMP 98.1; BMI 34.0
--- NOTE | 2020-09-03 15:26 | P.PN ---
Subjective Progress Note Date: 09/03/20 DATE OF SERVICE: 09/03/2020 CHIEF COMPLAINT: Status post sleeve gastrectomy HISTORY OF PRESENT ILLNESS: Lisha Haro is a 50-year-old female status post sleeve gastrectomy on 08/06/2016. She is status post panniculectomy 11/20/2018. She is 4 years out. She is very busy. She has 3 jobs. She has increased weight gain. She reports gastroesophageal reflux disease. She reports epigastic abdominal pain. At her height of 5 feet 6 inches, her ideal body weight is 154 pounds. Her highest weight was 295 pounds, BMI 47.7. Today she comes in weighing 211 pounds from 201 pounds, 3 months ago. She has gained 10 pounds in 3 months. Total weight loss is 84 pounds lifetime. Lifetime percent excess weight loss is 60 %. Body mass index is reduced from 47.7 down to 34.1. PAST MEDICAL HISTORY: 1. Hypertension. 2. Morbid obesity, BMI 47.7, initial 3. Hypothyroidism. 4. Vitamin D deficiency. PAST SURGICAL HISTORY: 1. Adenoidectomy. 2. Tonsillectomy. 3. Uterine ablation. 4. History of problems with anesthesia 5. Status post sleeve gastrectomy 6. Status post panniculectomy MEDICATIONS: Home Medications Medication Instructions Recorded Confirmed Cholecalciferol [Vitamin D3] 400 unit PO DAILY 11/25/16 05/14/20 Multivitamins, Thera [Multivitamin 1 tab PO DAILY 11/09/18 05/14/20 (formulary)] Ubidecarenone [Co Q-10] 100 mg PO DAILY 01/17/19 05/14/20 Previous Rx's Medication Instructions Recorded Levothyroxine Sodium [Synthroid] 125 mcg PO DAILY #90 tab 01/04/18 Ibuprofen [Motrin] 600 mg PO Q8HR PRN #90 tab 11/21/18 Magnesium Hydroxide [Milk of 2,400 mg PO DAILY #1 bottle 11/21/18 Magnesia Concentrate] ALLERGIES: Denies. SOCIAL HISTORY: Lifelong nontobacco user. FAMILY HISTORY: She has family history of morbid obesity, including CVA, diabetes, hyperlipidemia, hypertension, osteoarthritis as well as bipolar manic depressive disorder. REVIEW OF SYSTEMS: CONSTITUTIONAL: At her height of 5 feet 6 inches, her ideal body weight is 154 pounds. Her highest weight was 295 pounds. Body mass index is reduced from 47.7. MUSCULOSKELETAL: History of lower back worsened with pannus now improved following panniculectomy. Improvement of lower extremity joints. GASTROINTESTINAL: Has gastroesophageal reflux disease. No reports of dumping syndrome. CARDIOVASCULAR: History of hypertension, now resolved. No reports of palpitations. ENDOCRINE: History of hypothyroidism. No diabetes. HEENT: Denies troubles with vision or hearing. No reports of dysphagia. RESPIRATORY: No reports of pneumonia. NEURO: No reports of stroke or seizure disorders. PSYCH: No reports of active depression or suicidal ideation. HEMATOLOGIC: No reports of easy bruising or bleeding. SKIN: History of chronic skin rashes of the pannus. No skin cancer. PHYSICAL EXAM: VITAL SIGNS: 5 feet 6 inches, 211 pounds. Body mass index 34.1 Vital Signs Temp 98.1 F 09/03/20 14:49 Pulse 68 09/03/20 14:49 Resp 18 09/03/20 14:49 BP 121/86 09/03/20 14:49 Pulse Ox ABDOMEN: Soft, nontender. GENERAL: Well-developed female in no acute distress. NECK: No palpable lymphadenopathy or nodules. HEENT: No scleral icterus. Extraocular movements grossly intact. Moist buccal mucosa. CHEST: Nonlabored respirations with equal bilateral excursions. CARDIOVASCULAR: Regular rate and rhythm. MUSCULOSKELETAL: No clubbing or cyanosis. NEURO: Cranial nerves 2-12 intact grossly intact. No focal or lateralizing signs. PSYCH: Appropriate affect. Alert and oriented to person, place and time. SKIN: Well perfused. Good skin turgor. LABS: Labs are reviewed with iron is low. TSH is low. EGD FINDINGS: No acute ulceration found along her sleeve. No corkscrewing sleeve gastrectomy. Squamocolumnar junction at 35 cm from the incisors. Diaphragmatic hiatus at 40 cm. Moderate large gastric reservoir with prior history of sleeve gastrectomy allowing easy retroflexion of the gastroscope to view the lower esophageal valve. Hiatal hernia 5 cm, fixed. LA grade A erosive esophagitis. No active duodenitis. Chronic gastritis. Distal esophageal spasm ASSESSMENT: 1. Body mass index reduced from 47.7 down to 34.1 2. Hypertensive heart disease 3. Status post sleeve gastrectomy. 4. Hypothyroidism. 5. Gastroesophageal reflux disease 6. Weight regain following bariatric surgery PLAN: 1. She has large hiatal hernia. 2. Recommend esophagram. 3. Also may need repair pending results of esophagram. Objective - Vital Signs Vital signs: Vital Signs Temp 98.1 F 09/03/20 14:49 Pulse 68 09/03/20 14:49 Resp 18 09/03/20 14:49 BP 121/86 09/03/20 14:49 Pulse Ox Intake & Output 09/02/20 09/03/20 09/03/20 18:59 06:59 18:59 Weight 95.708 kg
== END | disposition home or self-care (01) ==
LOC: BARWHC3 14:06
PROVIDERS: ATTEND Surgery Plastic and Reconstructive Surgery
DX: Z48.815 Encounter for surgical aftercare following surgery on the digestive system (principal); I11.9 Hypertensive heart disease without heart failure; E03.9 Hypothyroidism, unspecified; K21.9 Gastro-esophageal reflux disease without esophagitis; Z87.891 Personal history of nicotine dependence; Z98.890 Other specified postprocedural states; Z79.899 Other long term (current) drug therapy
CPT/HCPCS: 99211

== ENCOUNTER → 2020-09-09 | Outpatient (CLI) | payer OTHER | END | disposition home or self-care (01) | LOC: LABPAT 07:25 | PROVIDERS: ATTEND Surgery Plastic and Reconstructive Surgery | DX: Z01.818 Encounter for other preprocedural examination (principal) | CPT/HCPCS: 93005 ==

== ENCOUNTER → 2020-09-22 | Outpatient (CLI) | payer OTHER ==
--- NOTE | 2020-09-22 10:22 | FL ---
EXAMINATION TYPE: FL barium swallow DATE OF EXAM: 09/22/2020 CLINICAL HISTORY: Epigastric pain R10.13, R13.10 Dysphgia \ The patient ingested contrast without difficulty or delay. Noted are postsurgical changes of gastric sleeve. There is no evidence for leak or obstruction. Contrast is noted within the duodenum. The re is a small reducible sliding type hiatal hernia. IMPRESSION: There is a small reducible sliding type hiatal hernia.
== END | disposition home or self-care (01) ==
LOC: RADUSWWP 08:48
PROVIDERS: ATTEND Surgery Plastic and Reconstructive Surgery
DX: K44.9 Diaphragmatic hernia without obstruction or gangrene (principal); R13.10 Dysphagia, unspecified
CPT/HCPCS: 74220

== ENCOUNTER → 2020-11-26 | Outpatient (CLI) | payer OTHER ==
[2020-11-26 13:38] VITALS: BP 124/84; PULSE 86; RESP 18; TEMP 98.7; BMI 32.5
--- NOTE | 2020-11-26 13:53 | P.PN ---
Subjective Progress Note Date: 11/26/20 DATE OF SERVICE: 11/26/2020 CHIEF COMPLAINT: Status post sleeve gastrectomy HISTORY OF PRESENT ILLNESS: Lisha Haro is a 50-year-old female status post sleeve gastrectomy on 08/06/2016. She is over 4 years out. She comes in with severe gastroesophageal reflux disease. She has started her diet and reports moderate weight loss. She denies active chest pain or shortness of breath. She comes in with symptomatic hiatal hernia with symptoms long standing over 2 months. At her height of 5 feet 6 inches, her ideal body weight is 154 pounds. Her highest weight was 295 pounds, BMI 47.7. Today she comes in weighing 202 pounds from 211 pounds, 3 months ago. She has lost 9 pounds in 3 months. Total weight loss is 93 pounds lifetime. Lifetime percent excess weight loss is 66 %. Body mass index is reduced from 47.7 down to 32.6 PAST MEDICAL HISTORY: 1. Hypertension. 2. Morbid obesity due to excess calories, BMI 47.7, initial 3. Hypothyroidism. 4. Vitamin D deficiency. PAST SURGICAL HISTORY: 1. Adenoidectomy. 2. Tonsillectomy. 3. Uterine ablation. 4. History of problems with anesthesia 5. Status post sleeve gastrectomy 6. Status post panniculectomy MEDICATIONS: Home Medications Medication Instructions Recorded Confirmed Cholecalciferol [Vitamin D3] 400 unit PO DAILY 11/25/16 05/14/20 Multivitamins, Thera [Multivitamin 1 tab PO DAILY 11/09/18 05/14/20 (formulary)] Ubidecarenone [Co Q-10] 100 mg PO DAILY 01/17/19 05/14/20 Previous Rx's Medication Instructions Recorded Levothyroxine Sodium [Synthroid] 125 mcg PO DAILY #90 tab 01/04/18 Ibuprofen [Motrin] 600 mg PO Q8HR PRN #90 tab 11/21/18 Magnesium Hydroxide [Milk of 2,400 mg PO DAILY #1 bottle 11/21/18 Magnesia Concentrate] ALLERGIES: Denies. SOCIAL HISTORY: Lifelong nontobacco user. FAMILY HISTORY: She has family history of morbid obesity, including CVA, diabetes, hyperlipidemia, hypertension, osteoarthritis as well as bipolar manic depressive disorder. REVIEW OF SYSTEMS: CONSTITUTIONAL: At her height of 5 feet 6 inches, her ideal body weight is 154 pounds. Her highest weight was 295 pounds. Body mass index is reduced from 47.7. MUSCULOSKELETAL: History of lower back worsened with pannus now improved following panniculectomy. Improvement of lower extremity joints. GASTROINTESTINAL: Has gastroesophageal reflux disease. No reports of dumping syndrome. CARDIOVASCULAR: History of hypertension, now resolved. No reports of palpitations. ENDOCRINE: History of hypothyroidism. No diabetes. HEENT: Denies troubles with vision or hearing. No reports of dysphagia. RESPIRATORY: No reports of pneumonia. NEURO: No reports of stroke or seizure disorders. PSYCH: No reports of active depression or suicidal ideation. HEMATOLOGIC: No reports of easy bruising or bleeding. SKIN: History of chronic skin rashes of the pannus. No skin cancer. PHYSICAL EXAM: VITAL SIGNS: 5 feet 6 inches, 202 pounds. Body mass index 32.6 Vital Signs Temp 98.7 F 11/26/20 13:30 Pulse 86 11/26/20 13:30 Resp 18 11/26/20 13:30 BP 124/84 11/26/20 13:30 Pulse Ox Intake & Output 11/26/20 11/26/20 11/27/20 06:59 18:59 06:59 Weight 91.626 kg ABDOMEN: Soft, nontender. GENERAL: Well-developed female in no acute distress. NECK: No palpable lymphadenopathy or nodules. HEENT: No scleral icterus. Extraocular movements grossly intact. Moist buccal mucosa. CHEST: Nonlabored respirations with equal bilateral excursions. CARDIOVASCULAR: Regular rate and rhythm. MUSCULOSKELETAL: No clubbing or cyanosis. NEURO: Cranial nerves 2-12 intact grossly intact. No focal or lateralizing signs. PSYCH: Appropriate affect. Alert and oriented to person, place and time. SKIN: Well perfused. Good skin turgor. EGD FINDINGS: No acute ulceration found along her sleeve. No corkscrewing sleeve gastrectomy. Squamocolumnar junction at 35 cm from the incisors. Diaphragmatic hiatus at 40 cm. Moderate large gastric reservoir with prior history of sleeve gastrectomy allowing easy retroflexion of the gastroscope to view the lower esophageal valve. Hiatal hernia 5 cm, fixed. LA grade A erosive esophagitis. No active duodenitis. Chronic gastritis. Distal esophageal spasm STUDIES: Barium swallow independently reviewed demonstrating sliding hiatal hernia. EKG: Reviewed from 2015, 2017 and 2019 demonstrating non-specific ST and T wave abnormality unchanged from her previous EKG two years prior ASSESSMENT: 1. Body mass index reduced from 47.7 down to 34.1 2. Hypertensive heart disease 3. Status post sleeve gastrectomy. 4. Hypothyroidism. 5. Gastroesophageal reflux disease 6. Weight regain following bariatric surgery 7. Hiatal hernia PLAN: 1. She has a symptomatic hiatal hernia. Recommend hiatal hernia repair. Robotic assisted approach described. 2. She is elevated risk for complications due to pre-existing gastric surgery. 3. Overnight hospitalization described for dysphagia. 4. Risks of dysphagia, recurrence following weight gain also reviewed. Objective - Vital Signs Vital signs: Vital Signs Temp 98.7 F 11/26/20 13:30 Pulse 86 11/26/20 13:30 Resp 18 11/26/20 13:30 BP 124/84 11/26/20 13:30 Pulse Ox Intake & Output 11/25/20 11/26/20 11/26/20 18:59 06:59 18:59 Weight 91.626 kg
== END | disposition home or self-care (01) ==
LOC: BARWHC3 13:11
PROVIDERS: ATTEND Surgery Plastic and Reconstructive Surgery
DX: Z48.815 Encounter for surgical aftercare following surgery on the digestive system (principal); I11.9 Hypertensive heart disease without heart failure; E03.9 Hypothyroidism, unspecified; K21.9 Gastro-esophageal reflux disease without esophagitis; K44.9 Diaphragmatic hernia without obstruction or gangrene; Z98.84 Bariatric surgery status; Z79.890 Hormone replacement therapy; Z79.899 Other long term (current) drug therapy; Z79.891 Long term (current) use of opiate analgesic; Z98.890 Other specified postprocedural states
CPT/HCPCS: 99211

== ENCOUNTER → 2020-11-27 | Outpatient (CLI) | payer OTHER ==
[2020-11-27 10:31] LABS: Basophils % (A) 0 %; Eosinophils # (A) 0.1 k/uL (0-0.7); Eosinophils % (A) 1 %; HCT 45.4 % (34.0-46.0); HGB 15.1 gm/dL (11.4-16.0); Lymphocytes # (A) 1.3 k/uL (1.0-4.8); Lymphocytes % (A) 15 %; MCH 29.3 pg (25.0-35.0); MCHC 33.3 g/dL (31.0-37.0); Monocytes # (A) 0.5 k/uL (0-1.0); Monocytes % (A) 6 %; Neutrophils # (A) 6.9 k/uL (1.3-7.7); Neutrophils % (A) 76 %; Platelet Count 237 k/uL (150-450); RBC 5.16 m/uL (3.80-5.40); RDW 12.8 % (11.5-15.5)
[2020-11-27 10:44] LABS: Albumin 4.5 g/dL (3.5-5.0); Calcium 9.5 mg/dL (8.4-10.2); Potassium 4.3 mmol/L (3.5-5.1); Total Bilirubin 0.7 mg/dL (0.2-1.3); Total Protein 7.7 g/dL (6.3-8.2)
== END | disposition home or self-care (01) ==
LOC: LABPAT 09:30
PROVIDERS: ATTEND Surgery Plastic and Reconstructive Surgery
DX: Z01.818 Encounter for other preprocedural examination (principal)
CPT/HCPCS: 36415; 80053; 85025

== ENCOUNTER 2020-12-08 06:13 | Inpatient (IN) | payer OTHER ==
[2020-12-01 09:24] VITALS: BMI 32.5
--- NOTE | 2020-12-08 05:24 | P.GSHP ---
History of Present Illness H&P Date: 12/08/20 CHIEF COMPLAINT: Paraesophageal hiatal hernia with gastroesophageal reflux disease. HISTORY OF PRESENT ILLNESS: The patient is a 50-year-old female who presents with paraesophageal hiatal hernia. She has completed an upper endoscopy workup. Now she presents for surgical intervention. PAST MEDICAL HISTORY: Please see list. PAST SURGICAL HISTORY: Please see list. MEDICATIONS: Please see list. ALLERGIES: Please see list. SOCIAL HISTORY: Please see list. FAMILY HISTORY: Please see list. REVIEW OF ORGAN SYSTEMS: CONSTITUTIONAL: No reports of fevers or chills. GI: Denies any blood in stools or constipation. PHYSICAL EXAM: VITAL SIGNS: Stable GENERAL: Well-developed pleasant and in no acute distress. HEENT: No scleral icterus. Extraocular movements grossly intact. Moist buccal mucosa. NECK: Supple without lymphadenopathy. CHEST: Unlabored respirations. Equal bilateral excursions. CARDIOVASCULAR: Regular rate and rhythm. Distal 2+ pulses. ABDOMEN: Soft, nondistended. No peritoneal signs. MUSCULOSKELETAL: No clubbing, cyanosis, or edema. SKIN: Well-perfused. Good skin turgor. ASSESSMENT: 1. Diaphragmatic paraesophageal hiatal hernia with severe gastroesophageal reflux disease. PLAN: 1. Recommend proceeding with a robotic paraesophageal hiatal hernia with possible mesh. 2. Benefits and risks of surgical intervention was discussed including possibility of open technique. 3. Inpatient hospitalization recommended of 2 nights 4. DVT prophylaxis. 5. Antibiotic prophylaxis. 6. She has also completed a very low caloric high-protein diet to address underlying hepatomegaly. Past Medical History Past Medical History: Asthma, GERD/Reflux, Hypertension, Thyroid Disorder Additional Past Medical History / Comment(s): Asthma as a child. GERD, HTN resolved w/ wgt loss. Chronic constipation since Bariatric surgery. History of Any Multi-Drug Resistant Organisms: None Reported Past Surgical History: Adenoidectomy, Bariatric Surgery, Tonsillectomy, Uterine Ablation Additional Past Surgical History / Comment(s): EGD, sleeve gastrectomy 08/06/16, panniculectomy 11/20/18 Past Anesthesia/Blood Transfusion Reactions: Previous Problems w/ Anesthesia Additional Past Anesthesia/Blood Transfusion Reaction / Comment(s): During uterine ablation was acutely aware of sounds during procedure. Post Epidural for childbirth was "paralyzed" after delivery but feeling did come back after . No hx blood transfusion. Smoking Status: Never smoker - Past Family History Mother Family Medical History: No Reported History Father Family Medical History: COPD, Coronary Artery Disease (CAD), Thyroid Disorder Additional Family Medical History / Comment(s): Bipolar/manic depressive Medications and Allergies Home Medications Medication Instructions Recorded Confirmed Type Cholecalciferol [Vitamin D3 (10 400 unit PO DAILY 11/25/16 12/01/20 History Mcg = 400 Iu)] Multivitamins, Thera [Multivitamin 1 tab PO DAILY 11/09/18 12/01/20 History (formulary)] Coconut Oil Drops 1 dose PO DAILY 08/07/20 12/01/20 History Laxative 1 tab PO DAILY 08/07/20 12/01/20 History Levothyroxine Sodium [Synthroid] 125 mcg PO QAM 12/01/20 12/01/20 History Allergies Allergy/AdvReac Type Severity Reaction Status Date / Time No Known Allergies Allergy Verified 12/01/20 09:18
[~2020-12-08 06:13] MED LIST changes: +ACETAMINOPHEN TAB 500 MG TAB PO STA; +DEXAMETHASONE SOD PHOSPHATE 4 MG/ML 1 ML VIAL IV ONE; +GABAPENTIN 300 MG CAP PO STA; +HEPARIN SODIUM,PORCINE 5,000 UNIT/ML 1 ML VIAL SQ STA; -LIDOCAINE 1% (10MG/ML) FOR IV START INTRADERMA PRN; +MELOXICAM 7.5 MG TAB PO ONE; +MIDAZOLAM 2 MG/2 ML VIAL IV PRN; +ONDANSETRON 4 MG/2 ML VIAL IVP ONE; +SCOPOLAMINE 1.5MG/72HR PATCH TRANSDERM ONE; +SCOPOLAMINE 1.5MG/72HR PATCH TRANSDERM STA
[2020-12-08] MEDS ORDERED: HYDROmorphone 0.5 MG/0.5 ML SYRINGE IVP PRN (07:00)
[2020-12-08] MEDS ORDERED: LIDOCAINE 1% (10MG/ML) FOR IV START INTRADERMA ONE (07:06)
[2020-12-08] MEDS ORDERED: PANTOPRAZOLE 40 MG/10 ML VIAL IVP PRN (07:11)
[2020-12-08] MEDS ORDERED: CHLORHEXIDINE GLUCONATE 15 ML CUP MUCOUS MEM PRN (07:11)
[2020-12-08] MEDS ORDERED: ROCURONIUM 10 MG/ML (10 ML VIAL) IV ONE (07:25)
[2020-12-08] MEDS ORDERED: PROPOFOL 10 MG/ML 20 ML VIAL IV ONE (07:25)
[2020-12-08] MEDS ORDERED: MIDAZOLAM 2 MG/2 ML VIAL ONE (07:25)
[2020-12-08] MEDS ORDERED: PANTOPRAZOLE 40 MG/10 ML VIAL ONE (07:25)
[2020-12-08] MEDS ORDERED: GLYCOPYRROLATE 0.2 MG/ML 2 ML VIAL ONE (07:25)
[2020-12-08] MEDS ORDERED: LIDOCAINE 1% INJ 10MG/ML (20 ML MDV) ONE (07:25)
[2020-12-08] MEDS ORDERED: SUCCINYLCHOLINE CHLORIDE 100 MG/5 ML SYR IV ONE (07:25)
[2020-12-08] MEDS ORDERED: fentaNYL (PF) 50 MCG/ML 2 ML AMP ONE (07:25)
[2020-12-08] MEDS ORDERED: LACTATED RINGERS 1,000 ML IV ONE (08:20)
[2020-12-08] MEDS ORDERED: LIDOCAINE 1%-EPI 1:100,000 20 ML VIAL SQ ONE (08:25)
[2020-12-08] MEDS ORDERED: NALOXONE 0.4 MG/ML 1 ML VIAL IV PRN (09:25)
[2020-12-08] MEDS ORDERED: HYDROmorphone 1 MG/ML 1 ML SYRINGE IVP PRN (09:25)
[2020-12-08] MEDS ORDERED: DEXAMETHASONE SOD PHOSPHATE 10 MG/ML 1 ML VIAL IV PRN (09:29)
--- NOTE | 2020-12-08 09:43 | P.OP ---
Date of Procedure: 12/08/20 Description of Procedure: SURGEON: CAIT ALLEN MD PREOPERATIVE DIAGNOSES: 1. Gastroesophageal reflux disease, with erosive esophagitis 2. Paraesophageal hiatal hernia, midline 3. Morbid obesity due to excess calories, BMI of 32.5 4. History of sleeve gastrectomy 5. Epigastric abdominal pain 6. Hypothyroidism POSTOPERATIVE DIAGNOSES: 1. Gastroesophageal reflux disease, with erosive esophagitis 2. Paraesophageal hiatal hernia, midline, initial with incarceration, 3 x 4 cm, type III 3. Morbid obesity due to excess calories, BMI of 32.5 4. History of sleeve gastrectomy 5. Epigastric abdominal pain 6. Hypothyroidism OPERATION: 1. Robotic-assisted da Laurie Xi laparoscopic reduction and repair of initial incarcerated paraesophageal hiatal hernia, 3 x 4 cm, with [place] Biopatch A 8 x 8 cm. 2. Intraoperative esophagogastroscopy 3. Intraoperative placement of 56Fr bougie ANESTHESIA: General with local anesthetic. ESTIMATED BLOOD LOSS: 5 mL Pathology: None COMPLICATIONS: None. FINDINGS: 1. Thoracic length 14 cm. 2. Port placed 12 cm distal. 3. Incarcerated upper pole of the stomach with dissection performed, type III paraesophageal hiatal hernia 4. 4 cm paraesophageal incarcerated diaphragmatic hiatal hernia with dissection into the mediastinum 5. [place] Biopatch A onlay mesh placed. 6. Intra-abdominal esophageal length over 3 cm obtained 7. Moderate gastric sleeve reservoir along the retroflexion INDICATIONS: The patient is a 50-year-old female who presents with epigastric abdominal pain, history of sleeve gastrectomy, gastroesophageal reflux recalcitrant to medical therapy with a symptomatic diaphragmatic hiatal hernia. Preoperative workup including upper endoscopy demonstrated hiatal hernia with erosive esophagitis. 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 Given the severity of her symptoms, she had elected for surgical intervention. Benefits and risks including bleeding, infection, recurrence, dysphagia, injury to the lung, need for further surgery was described at length. Informed consent was obtained. DESCRIPTION: The patient was brought into the operating room and placed in supine position. Preoperatively she had received heparin subcutaneously for DVT prophylaxis. After general induction, the abdomen was prepped and draped in standard sterile fashion. The patient had previously voided prior to coming to the operating room. Ioban draping was placed along the abdomen. A timeout protocol was confirmed with the surgical team, for which the patient's name, procedure to be performed including DVT prophylaxis with bilateral SCDs, and preoperative antibiotics were also confirmed. A robotic da Laurie Xi system was prepped and primed. At 15 cm from the xiphoid to just below the umbilicus, proposed port sites were marked with indelible marker along the left axillary line, left mid-clavicular line with each ports were marked 10 cm from each other. A 5 mm 0 degrees laparoscopic trocar entry was performed along the left upper quadrant. The abdomen was insufflated to 15 mmHg pressure was tolerated well. Diagnostic laparoscopy demonstrated no injury to bowel, viscera. Severe peritoneal of the lower abdomen was identified and undisturbed. No additional adhesions were found along the liver or the sleeve gastrectomy to the liver. Next, one 8 mm robotic port was placed along the right upper abdomen. An 8-mm port was were placed along the left lateral abdominal wall. The camera 8-mm port was maintained along the epigastrium. Another 12 mm port was placed along the left upper abdominal wall after exchanging the 5 mm port. Please note that the ports were placed at least 20 cm away from the target anatomy. Care was taken to check that each robotic arm were safely away from collision with the bed or the patient. The patient was repositioned in reverse Trendelenburg position at 21-degrees after lowering the bed. The robot was docked above the left side of the patient. Using a grasper for arm 3, a grasper for arm 1, including vessel sealer for arm 2, the robotic system was docked and primed as described. Instruments were interchanged by the assistant auto center manager. I had sat at the console. Initial attention was brought to hiatus. Circumferentially the dissection at the hiatus was performed using vessel sealer including blunt dissection. The gastrohepatic ligament was cleaved using a vessel sealer. Next, the phrenoesophageal ligament was mobilized and the distal esophagus was mobilized circumferentially. An incarcerated hernia sac was found into the mediastinum. As a result, dissection into the mediastinum was performed to free the proximal sleeve gastrectomy including the mid to distal esophagus consistent with a type III hiatal hernia. The left and right crura was identified. Circumferentially, the hernia sac was incised and brought into the abdominal cavity. Care was taken to avoid any gastrotomy to the incarcerated upper pole of the stomach. The measured defect was measured with a ruler consistent with 4 cm axial length and 3 cm in width. After dissection, at least 2 cm of the distal esophagus was brought into the abdominal cavity. Once the hiatus and crura was dissected, 2-0 VLOC non-absorbable suture was placed as a running suture to re-approximate the diaphragmatic hiatus posteriorly. To buttress the repair, a [place] Biopatch A was prepared along the back table and cut in a half cali-hole fashion as to reinforce the repair as an underlay. The mesh was resized posteriorly placed along the crural repair and tagged using 2- 0 VLOC. I went to the head of the bed to perform intraoperative esophagogastroduodenoscopy. An Olympus gastroscope was passed through posterior oropharynx, where the squamocolumnar junction was confirmed at 38 cm from the incisors. The hiatus repair was confirmed from the incisors. The stomach was entered. Retroflexion of the scope confirmed moderate-sized sleeve reservoir. The stomach had been desufflated. No evidence of leaks were found or mucosal defects of the esophagus or stomach. The scope was exchanged with a 56-Kinyarwanda bougie to address hypertensive lower esophageal sphincter. This concluded the endoscopic portion of the case. The robot was undocked from the patient. I re-scrubbed into the case. All instruments and pneumoperitoneum were evacuated from the abdominal cavity. The incisions were cleansed with dilute hydrogen peroxide with saline solution. Incisions were reapproximated using 4-0 Monocryl in an interrupted subcuticular fashion. The 12-mm port site fascial defect was less than 8 mm in size. Exofin was applied to the skin. Local anesthetic was infiltrated in all wounds for postop analgesia. Multiple intra-abdominal films were obtained. At the end of the procedure, needle, sponge, and instrument count was verified correct by the surgical physician assistant. The patient had tolerated the procedure well and was taken to the postanesthesia unit in stable condition. Intraoperative films were reviewed with the patient's family who were pleased with the level of care.
[2020-12-08] MEDS ORDERED: ACETAMINOPHEN IV (For NPO) 1,000 MG in EMPTY BAG 1 BAG IVPB ONE (10:00)
[2020-12-08] MEDS: SIMETHICONE 40 MG/0.6 ML DROPS 2,000 MG/30 ML BOTTLE PO SCH ×3 (13:19→23:51)
[2020-12-08] MEDS: HYOSCYAMINE ORAL DROPS 1.875 MG/15 ML BOTTLE PO SCH ×3 (13:21→23:51)
[2020-12-08] MEDS: 0.9% NACL WITH KCL 20 MEQ/L 1,000 ML IV SCH ×2 (13:23→23:00)
[2020-12-08] MEDS: DEXAMETHASONE SOD PHOSPHATE 4 MG/ML 1 ML VIAL IV SCH ×3 (13:26→23:52)
[2020-12-08] MEDS: KETOROLAC 15 MG/ML 1 ML VIAL IVP SCH ×3 (13:29→23:50)
[2020-12-08] MEDS: ONDANSETRON 4 MG/2 ML VIAL IVP SCH ×3 (13:33→23:51)
[2020-12-08] MEDS: METOCLOPRAMIDE 5 MG/ML 2 ML VIAL IVP SCH ×3 (13:35→23:50)
--- NOTE | 2020-12-08 16:01 | FL ---
Single contrast esophagram EXAMINATION TYPE: FL esophagus cervic/pharynx DATE OF EXAM: 12/08/2020 3:44 PM COMPARISON: NONE CLINICAL HISTORY: Status post Kun fundoplication The patient ingested contrast without difficulty or delay. Noted are changes of Kun fundoplicatio n. There is no evidence for leak or obstruction. Small amount of residual contrast within the distal esophagus. IMPRESSION: Post-surgical change of Kun fundoplication without evidence for leak or obstruction.
[2020-12-09] MEDS: ONDANSETRON 4 MG/2 ML VIAL IVP SCH ×2 (05:54→12:08)
[2020-12-09] MEDS: DEXAMETHASONE SOD PHOSPHATE 4 MG/ML 1 ML VIAL IV SCH ×2 (05:54→11:53)
[2020-12-09] MEDS: METOCLOPRAMIDE 5 MG/ML 2 ML VIAL IVP SCH ×2 (05:54→11:59)
[2020-12-09] MEDS: 0.9% NACL WITH KCL 20 MEQ/L 1,000 ML IV SCH (05:55)
[2020-12-09] MEDS: HYOSCYAMINE ORAL DROPS 1.875 MG/15 ML BOTTLE PO SCH ×2 (05:55→11:52)
[2020-12-09] MEDS: KETOROLAC 15 MG/ML 1 ML VIAL IVP SCH ×2 (05:55→12:09)
[2020-12-09] MEDS: SIMETHICONE 40 MG/0.6 ML DROPS 2,000 MG/30 ML BOTTLE PO SCH ×2 (05:55→11:51)
[2020-12-09 06:08] LABS: Basophils % (A) 0 %; Eosinophils % (A) 0 %; HCT 38.2 % (34.0-46.0); HGB 12.9 gm/dL (11.4-16.0); Lymphocytes # (A) 0.6 k/uL (1.0-4.8); Lymphocytes % (A) 7 %; MCH 29.7 pg (25.0-35.0); MCHC 33.8 g/dL (31.0-37.0); MCV 87.9 fL (80.0-100.0); Mean Platelet Volume 7.4; Monocytes # (A) 0.3 k/uL (0-1.0); Monocytes % (A) 4 %; Neutrophils # (A) 7.2 k/uL (1.3-7.7); Neutrophils % (A) 87 %; Platelet Count 204 k/uL (150-450); RBC 4.34 m/uL (3.80-5.40); RDW 13.1 % (11.5-15.5); WBC 8.3 k/uL (3.8-10.6)
[2020-12-09 06:20] LABS: African American GFR (CKD) >90 (>60 ml/min/1.73 sqM); Anion Gap 4 mmol/L; Blood Urea Nitrogen 12 mg/dL (7-17); Calcium 8.6 mg/dL (8.4-10.2); Carbon Dioxide 27 mmol/L (22-30); Chloride 105 mmol/L (98-107); Magnesium 1.8 mg/dL (1.6-2.3); Non-African American GFR(CKD) >90 (>60 ml/min/1.73 sqM); Phosphorus 3.8 mg/dL (2.5-4.5); Potassium 4.7 mmol/L (3.5-5.1); Sodium 136 mmol/L (137-145)
[2020-12-09] MEDS ORDERED: CHLORHEXIDINE GLUCONATE 15 ML CUP MUCOUS MEM PRN (07:00)
[2020-12-09] MEDS ORDERED: PANTOPRAZOLE 40 MG/10 ML VIAL IVP PRN (07:00)
[2020-12-09] MEDS ORDERED: 0.9% NACL WITH KCL 20 MEQ/L 1,000 ML IV SCH (08:00)
[2020-12-09] MEDS ORDERED: ENOXAPARIN 40 MG/0.4 ML SYRINGE SQ SCH (09:00)
[2020-12-09] MEDS ORDERED: PANTOPRAZOLE 40 MG/10 ML VIAL IV SCH (09:00)
--- NOTE | 2020-12-09 13:28 | P.DS ---
Providers Date of admission: 12/08/20 06:13 Expected date of discharge: 12/09/20 Attending physician: Gaviota Ratliff Primary care physician: Jake Mandujano [facility] Course: Discharge diagnosis 1. Gastroesophageal reflux disease, with erosive esophagitis 2. Paraesophageal hiatal hernia, midline, initial with incarceration, 3 x 4 cm, type III 3. Morbid obesity due to excess calories, BMI of 32.5 4. History of sleeve gastrectomy 5. Epigastric abdominal pain 6. Hypothyroidism Hospital course The patient is a 50-year-old female who presents with paraesophageal hiatal hernia. She has completed an upper endoscopy workup. Patient is status post Robotic-assisted da Laurie Xi laparoscopic reduction and repair of initial incarcerated paraesophageal hiatal hernia, 3 x 4 cm, with [place] Biopatch A 8 x 8 cm and Intraoperative esophagogastroscopy. Patient tolerated surgery well. Upper GI completed showing no evidence of leak or obstruction. Patient is tolerating diet. She denies any difficulty with swallowing. She is up and ambulating. Her pain is controlled. She's afebrile. She is stable for discharge. Physician Buildings And Grounds Superintendent note has been reviewed by physician. Signing provider agrees with the documented findings, assessment, and plan of care. Patient Condition at Discharge: Stable Plan - Discharge Summary Discharge Rx Participant: Yes New Discharge Prescriptions: New bisacodyL [Dulcolax] 5 mg PO DAILY PRN #10 tablet.dr PRN Reason: Constipation Simethicone 40 mg/0.6 ml Drops [Mylicon Drops] 40 mg PO PCHS PRN #30 ml PRN Reason: Gas Ondansetron Odt [Zofran Odt] 4 mg PO Q8HR PRN #9 tab PRN Reason: Nausea Ibuprofen [Motrin] 600 mg PO Q8HR PRN #30 tab PRN Reason: Pain Acetaminophen Tab [Tylenol Tab] 1,000 mg PO Q6HR PRN #30 tablet PRN Reason: Pain Continue Cholecalciferol [Vitamin D3 (10 Mcg = 400 Iu)] 400 unit PO DAILY Multivitamins, Thera [Multivitamin (formulary)] 1 tab PO DAILY Coconut Oil Drops 1 dose PO DAILY Laxative 1 tab PO DAILY Levothyroxine Sodium [Synthroid] 125 mcg PO QAM Discharge Medication List Cholecalciferol [Vitamin D3 (10 Mcg = 400 Iu)] 400 unit PO DAILY 11/25/16 [History] Multivitamins, Thera [Multivitamin (formulary)] 1 tab PO DAILY 11/09/18 [History] Coconut Oil Drops 1 dose PO DAILY 08/07/20 [History] Laxative 1 tab PO DAILY 08/07/20 [History] Levothyroxine Sodium [Synthroid] 125 mcg PO QAM 12/01/20 [History] Acetaminophen Tab [Tylenol Tab] 1,000 mg PO Q6HR PRN #30 tablet 12/09/20 [Rx] Ibuprofen [Motrin] 600 mg PO Q8HR PRN #30 tab 12/09/20 [Rx] Ondansetron Odt [Zofran Odt] 4 mg PO Q8HR PRN #9 tab 12/09/20 [Rx] Simethicone 40 mg/0.6 ml Drops [Mylicon Drops] 40 mg PO PCHS PRN #30 ml 12/09/20 [Rx] bisacodyL [Dulcolax] 5 mg PO DAILY PRN #10 tablet. 12/09/20 [Rx] [facility]Ref[facility] [place] [facility] [place] 12/17/20 2:00 pm Patient Instructions/Handouts: Laparoscopic Hiatal Hernia Repair (DC) Activity/Diet/Wound Care/Special Instructions: Liquid diet only for 2 weeks until Dec 22 No lifting over 4 pounds in 4 weeks, Jan 08 May shower No soaking in bath tubs for 2 weeks, until Dec 22 Please notify your surgeon if you develop nausea and vomiting including new onset of abdominal pain. Please ambulate at all times. Use Tylenol and ibuprofen or Aleve scheduled for the next 24-48 hours for best pain relief. Use ice along incisions for the today to prevent swelling. Please open, cut, crush pills larger than the size of a tic tack No carbonated beverages. No straws. Do not remove scopolamine patch for 3 days, if present Discharge Disposition: HOME SELF-CARE
[2020-12-09 14:05] VITALS: BP 94/60; PULSE 53; RESP 16; TEMP 98
[2020-12-10] MEDS ORDERED: bisacodyL 5 MG TABLET.DR PO PRN (08:00)
== END 2020-12-09 15:14 | disposition home or self-care (01) | DRG 327 ==
LOC: 2ORMAIN 06:13 → 6PED 09:27
PROVIDERS: ADMIT Surgery Plastic and Reconstructive Surgery; ATTEND Surgery Plastic and Reconstructive Surgery
PROC: 0D754ZZ Dilation of Esophagus, Percutaneous Endoscopic Approach (ICD-10-PCS; principal; 2020-12-08 07:30)
PROC: 0BUT4JZ Supplement Diaphragm with Synthetic Substitute, Percutaneous Endoscopic Approach (ICD-10-PCS; principal; 2020-12-08 07:30)
PROC: 0DJ68ZZ Inspection of Stomach, Via Natural or Artificial Opening Endoscopic (ICD-10-PCS; principal; 2020-12-08 07:30)
PROC: 8E0W4CZ Robotic Assisted Procedure of Trunk Region, Percutaneous Endoscopic Approach (ICD-10-PCS; principal; 2020-12-08 07:30)
DX: K44.0 Diaphragmatic hernia with obstruction, without gangrene (principal); K22.10 Ulcer of esophagus without bleeding; I10 Essential (primary) hypertension; E03.9 Hypothyroidism, unspecified; E66.01 Morbid (severe) obesity due to excess calories; J45.909 Unspecified asthma, uncomplicated; K22.0 Achalasia of cardia; Z68.32 Body mass index [BMI] 32.0-32.9, adult; K21.00 Gastro-esophageal reflux disease with esophagitis, without bleeding; Z82.49 Family history of ischemic heart disease and other diseases of the circulatory system; Z87.09 Personal history of other diseases of the respiratory system; Z98.84 Bariatric surgery status; Z82.5 Family history of asthma and other chronic lower respiratory diseases; Z79.890 Hormone replacement therapy; Z83.49 Family history of other endocrine, nutritional and metabolic diseases; Z81.8 Family history of other mental and behavioral disorders
CPT/HCPCS: 74210; 80051; 81025; 82310; 82565; 83735; 84100; 84520; 85025

== ENCOUNTER → 2020-12-17 | Outpatient (CLI) | payer OTHER ==
--- NOTE | 2020-12-17 14:48 | P.PN ---
Subjective Progress Note Date: 12/17/20 DATE OF SERVICE: 12/17/2020 CHIEF COMPLAINT: Status post sleeve gastrectomy HISTORY OF PRESENT ILLNESS: Lisha Haro is a 50-year-old female status post sleeve gastrectomy on 08/06/2016. She is over 4 years out. She is status post hiatal hernia, 12/08/20, for gastroesophageal reflux disease. She is eating less. She is happy with her 20 pounds weight loss. She is doing well. She has no further gastroesophageal reflux. She is learning to drink slowly. She lifts more than 75 pounds daily at work. At her height of 5 feet 6 inches, her ideal body weight is 154 pounds. Her highest weight was 295 pounds, BMI 47.7. Today she comes in weighing 195 pounds from 202, 1 month ago. She has lost 7 pounds in 1 month. Total weight loss is 100 pounds lifetime. Lifetime percent excess weight loss is 71 %. Body mass index is reduced from 47.7 down to 31.5. PHYSICAL EXAM: VITAL SIGNS: 5 feet 6 inches, 195 pounds. Body mass index 31.5 Vital Signs Temp 97.6 F 12/17/20 14:47 Pulse 67 12/17/20 14:47 Resp 18 12/17/20 14:47 BP 130/85 12/17/20 14:47 Pulse Ox ABDOMEN: Soft, nontender. GENERAL: Well-developed female in no acute distress. NECK: No palpable lymphadenopathy or nodules. HEENT: No scleral icterus. Extraocular movements grossly intact. Moist buccal mucosa. CHEST: Nonlabored respirations with equal bilateral excursions. CARDIOVASCULAR: Regular rate and rhythm. MUSCULOSKELETAL: No clubbing or cyanosis. NEURO: Cranial nerves 2-12 intact grossly intact. No focal or lateralizing signs. PSYCH: Appropriate affect. Alert and oriented to person, place and time. SKIN: Well perfused. Good skin turgor. ASSESSMENT: 1. Body mass index reduced from 47.7 down to 31.5 2. Hypertensive heart disease 3. Status post sleeve gastrectomy. 4. Hypothyroidism. 5. Gastroesophageal reflux disease 6. Weight regain following bariatric surgery 7. Status post hiatal hernia repair PLAN: 1. Recommend adjust lifting restrictions to no lifting over 4 pounds for 4 to 6 weeks. 2. Time off from work another 2 weeks through January 26 described. 3. Follow bariatric diet to soft 2 weeks after procedure.
[2020-12-17 15:20] VITALS: BP 130/85; PULSE 67; RESP 18; TEMP 97.6; BMI 31.4
== END | disposition home or self-care (01) ==
LOC: BARWHC3 13:40
PROVIDERS: ATTEND Surgery Plastic and Reconstructive Surgery
DX: Z48.815 Encounter for surgical aftercare following surgery on the digestive system (principal); I11.9 Hypertensive heart disease without heart failure; E03.9 Hypothyroidism, unspecified; K21.9 Gastro-esophageal reflux disease without esophagitis; Z98.890 Other specified postprocedural states; Z98.84 Bariatric surgery status
CPT/HCPCS: 99211

== ENCOUNTER → 2020-12-24 | Outpatient (CLI) | payer OTHER ==
[2020-12-24 14:26] VITALS: BP 133/75; PULSE 73; RESP 18; TEMP 97.9; BMI 31.4
--- NOTE | 2020-12-24 14:57 | P.PN ---
Subjective Progress Note Date: 12/24/20 DATE OF SERVICE: 12/24/2020 CHIEF COMPLAINT: Status post sleeve gastrectomy HISTORY OF PRESENT ILLNESS: Lisha Haro is a 50-year-old female status post sleeve gastrectomy on 08/06/2016 followed by status post hiatal hernia repair, 12/08/20. She is 3 weeks out. She reports burning sensation along her chest with artificial water. Otherwise, no reports of gastroesophageal reflux disease. She reports headaches after eating. Her weight is controlled. She has maintained 20 pounds weight loss. She is happy with her weight loss. At her height of 5 feet 6 inches, her ideal body weight is 154 pounds. Her highest weight was 295 pounds, BMI 47.7. Today she comes in weighing 195 pounds unchanged from 1 week ago. Total weight loss is 100 pounds lifetime. Lifetime percent excess weight loss is 71 %. Body mass index is reduced from 47.7 down to 31.5. PHYSICAL EXAM: VITAL SIGNS: 5 feet 6 inches, 195 pounds. Body mass index 31.5 Vital Signs Temp 97.9 F 12/24/20 14:09 Pulse 73 12/24/20 14:09 Resp 18 12/24/20 14:09 BP 133/75 12/24/20 14:09 Pulse Ox ABDOMEN: Soft, nontender. No signs of infection. GENERAL: Well-developed female in no acute distress. NECK: No palpable lymphadenopathy or nodules. HEENT: No scleral icterus. Extraocular movements grossly intact. Moist buccal mucosa. CHEST: Nonlabored respirations with equal bilateral excursions. CARDIOVASCULAR: Regular rate and rhythm. MUSCULOSKELETAL: No clubbing or cyanosis. NEURO: Cranial nerves 2-12 intact grossly intact. No focal or lateralizing signs. PSYCH: Appropriate affect. Alert and oriented to person, place and time. SKIN: Well perfused. Good skin turgor. ASSESSMENT: 1. Body mass index reduced from 47.7 down to 31.5 2. Hypertensive heart disease 3. Status post sleeve gastrectomy. 4. Hypothyroidism. 5. Gastroesophageal reflux disease 6. Weight regain following bariatric surgery 7. Status post hiatal hernia repair PLAN: 1. She reports burning with artificial water. Recommend stop [employer] artificial water. 2. Return to work deferred at least 4 to 6 weeks post op. Objective - Vital Signs Vital signs: Vital Signs Temp 97.9 F 12/24/20 14:09 Pulse 73 12/24/20 14:09 Resp 18 12/24/20 14:09 BP 133/75 12/24/20 14:09 Pulse Ox Intake & Output 12/23/20 12/24/20 12/24/20 18:59 06:59 18:59 Weight 88.451 kg
--- NOTE | 2020-12-24 15:01 | P.PN ---
Progress Note - Text Progress Note Date: 12/24/20 To whom it may concern: Lisha Haro is under my surgical care. She may return to work without restrictions Monday, January 25, 2021. Feel free to contact us if questions. Regards, Gaviota Ratliff MD, FACS
== END | disposition home or self-care (01) ==
LOC: BARWHC3 13:35
PROVIDERS: ATTEND Surgery Plastic and Reconstructive Surgery
DX: Z48.815 Encounter for surgical aftercare following surgery on the digestive system (principal); I11.9 Hypertensive heart disease without heart failure; E03.9 Hypothyroidism, unspecified; K21.9 Gastro-esophageal reflux disease without esophagitis; Z98.84 Bariatric surgery status; Z68.42 Body mass index [BMI] 45.0-49.9, adult; Z98.890 Other specified postprocedural states
CPT/HCPCS: 99211